=== PATIENT | female | born 1935 | race Caucasian/White ===

== ENCOUNTER 2016-06-03 04:56 | Inpatient (IN) | payer MEDICARE, OTHER ==
[~2016-06-03] VITALS: Ht 149.9 cm; Wt 75.6 kg
--- NOTE | ~2016-06-03 | ER ---
PATIENT'S NAME: WOJCIECH RAGLAND [facility] AGE: 81 Y [address] ROOM: [address] [place], [place] [address] LOCATION: GPCU ADMIT DATE: 06/03/2016 ER/Outpatient Report DISCHARGE DATE: FAMILY PHYSICIAN: Kath Dalton MD ATTENDING PHYSICIAN: Kath Dalton This is addendum to note by Dr. Parsons. I received handout from Dr. Parsons at 0600 hours. The patient had some unusual findings on her EKG including flipping her T-waves in lead III as well as some slight ST-segment elevation, not meeting criteria in V2, which is different from prior EKGs as reviewed by me. Her chest x-ray, pulmonary exam, and the fact that she is requiring slight oxygen and this has been persistent are concerning for heart failure. She does have some trace edema of the lower extremities, but has been dealing with some lower extremity wounds. Her D- dimer came back elevated at 0.82. Her proBNP is also elevated today at 1499. Magnesium 2.3. CPK is 37, CK-MB 0.9, troponin I is undetectable with repeat labs notable for a CPK of 36, CK-MB of 0.8, troponin I is undetectable. Repeat EKG is grossly stable with no significant changes. Procalcitonin is undetectable. Sodium 135, potassium 4.6, chloride 100, CO2 is 27, BUN is 15, creatinine 0.9, GFR is 60. LFTs grossly unremarkable. WBC is 8.3, hemoglobin is 8.5, and platelets of 308. INR of 1.0. Lactate 0.8. CT PE protocol with moderate pulmonary edema, but no PE per Radiology read, I did not visualize any PE on the scan. When the patient was on room air after a CT, she was saturating 86-87%. For those reasons, in the setting of probable mild heart failure exacerbation and persistent dysuria, we will admit the patient to the hospital. Her primary care is Dr. Dalton, and thus we will admit to Dr. Yousif for further evaluation and treatment. The patient remained hemodynamically stable, requiring 1-2 L of oxygen in the emergency department. All questions were answered to the best of my ability, and the patient was admitted without further issue. MD YANELIS CASANOVA/andrea /[id number] d: 06/03/16 1643 t: 06/10/16 2352, OUTPATIENT REPORT
--- NOTE | ~2016-06-03 | CATH ---
Cardiac Diagnostic Report Demographics Patient Name OBIE Beckham Gender Female Date of 1935 Age 81 year(s) Patient Number [id number] Date of Study 06/06/2016 Visit Number [id number] Room Number G6217 [place] [id number] Ht 149.86 cm Wt 76.66 kg Referring Krystle Kath Treviño MD Primary Physician Physician Performing Meliza Secondary Physician Physician Tamie CRAVEN Diagnostic Meliza Assisting Physician Physician Tamie CRAVEN Interventional Physician Rpg Programmer Physician Findings and Conclusions Diagnostic Findings and Conclusion 1. RA: 2. RV: 68// 3. PA / 4. PCWP 5. LV Peak to peak gradient 65mm Hg. CO Thermo 3.18. Lauro 2.44. 1. Moderate PHTN. 2. Elevated LV EDP and PCWP (). 3. Critical . 4. Normal EF without WMA. 5. Patent LAD and LCFX stent. 6. ISR of the small OM1 stent 80%. 7. Moderate CAD involving distal LAD and OM2. Procedure Description The patient was brought to the diagnostic cardiac catheterization-EP laboratory in the fasting, non-sedated state. Informed consent was obtained in the written and verbal form after the risks and benefits were explained. The patient had no further questions and agreed to proceed. The planned puncture-incision site(s) were shaved and prepped with ChloraPrep and draped in the usual sterile manner. Conscious sedation, supplemental oxygen, and pain control medications were delivered by a registered nurse under physician guidance. Surface ECG rhythm, blood pressure measurement, and pulse oximetry were monitored throughout the procedure. Arterial access. The access site was infiltrated with lidocaine. The vessel was entered with the Seldinger technique. A sheath was advanced into the vessel and used for catheter placement. Venous access. The access site was infiltrated with 2% lidocaine. The vessel was entered with the Seldinger technique. A sheath was advanced into the vessel and used for catheter placement. Selective left coronary angiography. A catheter was advanced into the left coronary vessel ostium under Fluoroscopic guidance. Contrast was injected by hand. Images were obtained in multiple projections. Selective right coronary angiography. A catheter was advanced into the right coronary vessel ostium under fluoroscopic guidance. Contrast was injected by hand. Images were obtained in multiple projections. Left heart catheterization with ventriculography. A catheter was advanced across the aortic valve to the left ventricle under fluoroscopic guidance. Resting hemodynamics were obtained. With the catheter at the left ventricular apex, contrast was injected. Images were obtained in FLORES projection. Post-ventriculography LV pressure was obtained. The catheter was gradually withdrawn into the aorta with continuous pressure recording. Right heart catheterization. A Edison Nicole catheter was successfully advanced to the right atrium, right ventricle, pulmonary artery, and pulmonary artery wedge position under fluoroscopic guidance. Resting hemodynamics were obtained. Measurements included pressures, arterial and venous oxygen saturation samples, and cardiac output. The Edison was removed without difficulty. Arterial and Venous hemostasis was achieved. The patient was transferred to a regular nursing floor via cart accompanied by a nurse. The patient left the laboratory in stable condition. Diagnostic Cath Status: Urgent Procedure Procedure Type Diagnostic procedure:Ventriculogram:, Left, Angiography:, Right and Left Heart Cath, Coronary Angios Indications: Dyspnea. The procedure was explained in detail to the patient. Risks, complications and alternative treatments were reviewed. Written consent was obtained. Medications Reviewed with Patient prior to Procedure. Angiographic Findings Dominance: Right Cardiac Arteries and Lesion Findings LMCA: Abnormal and Minor Luminal Irregularities.Luminal Irregularities. Calcium and stents seen. LAD: Abnormal.Moderate diffuse disease. Type III. D1 large. D2 small. Stent in midlle LAD patent. Distal to stent is 60% stenosed. There is a previous stent on Mid LAD Mid subsection showing wide patency. Lesion on Dist LAD: Distal subsection.60% stenosis . Pre procedure PANFILO III flow was noted. The lesion was diagnosed as a moderate risk lesion. LCx: Abnormal.Small OM1. In stent restenosis 80%. PANFILO 3 Flow. Stent after OM1 patent. OM2 large. Proximal 50% stenosed. OM3 small. There is a previous stent on 1st Ob Madelaine showing focal ISR. There is a previous stent on Mid CX Mid subsection showing wide patency. Lesion on 1st Ob Madelaine: Proximal subsection.80% stenosis . Pre procedure PANFILO III flow was noted. The lesion was diagnosed as a moderate risk lesion. Lesion on 2nd Ob Madelaine: Proximal subsection.50% stenosis . Pre procedure PANFILO III flow was noted. The lesion was diagnosed as a moderate risk lesion. RCA: Abnormal.Dominant vessel. Moderate diffuse disease. Coronary Tree Procedure Data Procedure Date Date: 06/06/2016Start: 12:54 PMEnd: 03:30 PM Entry Locations - Retrograde Percutaneous access was performed through the Right Femoral artery (Primary location). A 7 Fr sheath was inserted. Hemostasis was successfully obtained using Angio-Seal STS PLUS ([place]). - Antegrade Percutaneous access was performed through the Right Femoral vein. A 7 Fr sheath was inserted. Closure Comments: 5 minutes of manual compression held by Lexy Martinez. Procedure Medications Order and Administration + + +---------+ + !Time !Medication !Dosage !Route ! + + +---------+ 06/06/2016 12:52 PM !Fentanyl !25 mcg !I.V. ! + + +---------+ 06/06/2016 01:29 PM !Fentanyl !25 mcg !I.V. ! + + +---------+ 06/06/2016 01:45 PM !Oxygen !2 l/min !Mask ! + + +---------+ + !06/06/2016 02:11 PM !Atropine !0.5 mg !I.V. ! + + +---------+ + !06/06/2016 02:12 PM !Atropine !0.5 mg !I.V. ! + + +---------+ + !06/06/2016 02:22 PM !Oxygen !4 l/min !Mask ! + + +---------+ + !06/06/2016 02:52 PM !Albumin 25% !100 ml !I.V. bolus ! + + +---------+ + Devices Used - A6 Fr. BS JR 4 Diag. Catheterwas used for:LV Pressures. - A6 Fr. BS Angled Pigtail Diag. Catheterwas used for:Left ventriculography. - A6 Fr. BS JL 4 Diag. Catheterwas used for:Left coronary angiography. - A6 Fr. BS JR 4 Diag. Catheterwas used for:Right coronary angiography. Contrast Material - Isovue 01817 ml Fluoroscopy Time: Diagnostic: 22:42 minutes. Total: 22:42 minutes. Fluoroscopy Dose: Diagnostic: 1283 mGy. Total: 1283 mGy. Estimated Blood Loss: 46 ml. Medical History Allergies - Other:(PCN,, Eryhromycin, floxin, Ceclor, Doxycycline, Narvil, Morphine, Nitro patch, Lanoxin, Levaquin). - Penicillin. - Cephalosporines. - Morphine. - Codiene. - Penicillin. Risk Factors The patient risk factors include:prior PCI;cerebrovascular disease, treated hypercholesterolemia, treated hypertension, family history of premature CAD, dyslipidemia and prior heart failure . Admission Data Admission Date: 06/05/2016 Admission Time: 08:10 AM Insurance Payors: Medicare. Admission Medications + +------+------+ + + + + !Medication !Dosage!Times !Last !Last !Administered !Comments ! ! ! !Per !Delivery !Delivery ! ! ! ! ! !Day !Date !Time ! ! ! + +------+------+ + + + + !Aspirin ! ! ! ! ! ! ! !(any) ! ! ! ! ! ! ! + +------+------+ + + + + !Nitrates (iv! ! ! ! ! ! ! !or buccal) ! ! ! ! ! ! ! + +------+------+ + + + + Clinical Evaluation Leading to Procedure - There were no CAD presentation symptoms. - There were no anginal symptoms. - The patient has been in a state of heart failure within the past two weeks. - The patient's heart failure status was assessed as NYHA Class IV, with CHF symptoms of SAL. VA Ventriculography Findings Normal LV function with WMA. LV function assessed as:Normal. Hemodynamics Condition: Rest O2 Consumption: Estimated: 155.07Heart Rate: 71 bpm Oxygen Saturation +--------+-----+----+ +---+ + !Location!pCO2 !pO2 !% Saturation !Hgb!O2 Content ! +--------+-----+----+ +---+ + !FA ! ! !90.8 ! ! ! +--------+-----+----+ +---+ + !PA ! ! !39.4 ! ! ! +--------+-----+----+ +---+ + Pressures (mmHg) +-----+ + !Site !Pressure ! +-----+ + !RA !01/02 (9) ! +-----+ + !RV !68/ ,13 ! +-----+ + !PCW ! (18) ! +-----+ + !PCW ! (27) ! +-----+ + !PA !66/23 (42) ! +-----+ + !LV !213/6 ,19 ! +-----+ + !LV !221/9 ,23 ! +-----+ + !LV !227/10 ,24 ! +-----+ + !PCW !/39 (33) ! +-----+ + !LV !226/10 ,24 ! +-----+ + !PCW !/38 (32) ! +-----+ + !LV !208/13 ,17 ! +-----+ + !LV !217/0 ,18 ! +-----+ + !AO !151/64 (99) ! +-----+ + !LV !217/1 ,18 ! +-----+ + !AO !162/68 (105) ! +-----+ + Cardiac Output + + +-----+ !Time !Cardiac Output (l/min) !Use ! + + +-----+ !06/06/2016 01:17 PM !3.17 !True ! + + +-----+ !06/06/2016 01:19 PM !3.06 !True ! + + +-----+ !06/06/2016 01:19 PM !3.3 !True ! + + +-----+ Cardiac Output +-------+ + + + !Method !CO (l/min) !CI (l/min/m2) !SV (ml) ! +-------+ + + + !Lauro !2.44 !1.4 !34.24 ! +-------+ + + + !Thermal!3.877194 !1.8 !44.12 ! +-------+ + + + Valve Gradients and Areas + +--------+--------+--------+---------+ + + !Valve !Peak !Mean !Area !Index !Flow !Source ! + +--------+--------+--------+---------+ + + !Aortic !65 !59 !0.3 !0.17 !101.88 !Lauro ! + +--------+--------+--------+---------+ + + !Aortic !65 !59 !0.39 !0.23 !132.64 !Thermal ! + +--------+--------+--------+---------+ + + !Mitral ! !12 !0.66 !0.38 !86.56 !Lauro ! + +--------+--------+--------+---------+ + + !Mitral ! !12 !0.86 !0.5 !112.69 !Thermal ! + +--------+--------+--------+---------+ + + Shunts Oxygen Values O2 Capacity 123.76 O2 Consumption 155.07 Flows (l/min) Qs 2.44 Vascular Resistance (dynes x sec x cm-5) + +-----+-----+-----+----+---------+-------+ !CO method !TSVR !SVR !TPVR !PVR !TPVR/TSVR!PVR/SVR! + +-----+-----+-----+----+---------+-------+ !Lauro !43.11!39.6 !17.26!3.98!0.4 !0.1 ! + +-----+-----+-----+----+---------+-------+ !Thermal !33.11!30.42!13.26!3.06!0.4 !0.1 ! + +-----+-----+-----+----+---------+-------+ !Qp or Qs !43.11!39.6 ! ! ! ! ! + +-----+-----+-----+----+---------+-------+ Discharge Data Discharge Date: 06/10/2016 Hospital Status: Inpatient Signatures dtt: Tamie Haider dtd: 06/06/16 1254 Physician Self Edit
--- NOTE | ~2016-06-03 | ENPV ---
Vascular Lower Extremities DVT Study Procedure Demographics Patient Name WOJCIECH RAGLAND Date of Study 06/05/2016 Patient Number [id number] Gender Female Date of 1935 Age 81 Visit Number [id number] Height 59 Accession Number [id number] Weight 169 Referring ArceCristy Mayers Germania Cardona MD Physician BRIDGE INSPECTOR Physician Physician Ordering Physician Stacker Visual Basic .Net Developer Cele Adams, T Conclusions Summary No evidence of deep vein thrombosis or superficial thrombophlebitis in the left lower extremity . Procedure Type of Study: Veins:Lower Extremities DVT Study, Lower Extremity Left. Indications for Study:Pain in Limb. Appropriate Use Criteria:9 Allergies - Other:(PCN,, Eryhromycin, floxin, Ceclor, Doxycycline, Narvil, Morphine, Nitro patch, Lanoxin, Levaquin). Patient Status:Routine. Study Location:Inpatient Portable. Technical Quality:Adequate visualization. Velocities are measured in cm/s ; Diameters are measured in cm Right Lower Extremities DVT Study Measurements Right 2D and Doppler Measurements + + + + +------+------+ + !Location !Visualized!Compressibility!Thrombosis!Signal!Reflux!Reflux ! ! ! ! ! ! ! !(sec) ! + + + + +------+------+ + !GSV Thigh !Yes !Yes !None !Phasic! ! ! + + + + +------+------+ + !Common !Yes !Yes !None !Phasic! ! ! !Femoral ! ! ! ! ! ! ! + + + + +------+------+ + Left Lower Extremities DVT Study Measurements Left 2D and Doppler Measurements + + + + +------+------+ + !Location !Visualized!Compressibility!Thrombosis!Signal!Reflux!Reflux ! ! ! ! ! ! ! !(sec) ! + + + + +------+------+ + !Common !Yes !Yes !None !Phasic!No ! ! !Femoral ! ! ! ! ! ! ! + + + + +------+------+ + !Prox !Yes !Yes !None !Phasic!No ! ! !Femoral ! ! ! ! ! ! ! + + + + +------+------+ + !Mid Femoral!Yes !Yes !None !Phasic!No ! ! + + + + +------+------+ + !Dist !Yes !Yes !None !Phasic!No ! ! !Femoral ! ! ! ! ! ! ! + + + + +------+------+ + !Popliteal !Yes !Yes !None !Phasic!No ! ! + + + + +------+------+ + !Gastroc !Yes !Yes !None !Phasic!No ! ! + + + + +------+------+ + !PTV !Yes !Yes !None !Phasic!No ! ! + + + + +------+------+ + !Peroneal !Yes !Yes !None !Phasic!No ! ! + + + + +------+------+ + Signature dtt: MIA BATISTA dtlulu: 06/05/16 0830 Physician Self Edit
--- NOTE | ~2016-06-03 | DS ---
PATIENT'S NAME: WOJCIECH RAGLAND [facility] AGE: 81 Y [address] ROOM: G6217 [place], [place] [address] LOCATION: [facility] ADMIT DATE: 06/05/2016 Discharge Summary DISCHARGE DATE: 06/10/2016 FAMILY PHYSICIAN: Kath Dalton MD ATTENDING PHYSICIAN: Kath Dalton ADMISSION DIAGNOSES: Shortness of breath, congestive heart failure exacerbation, dyspnea, and hypoxia. HOSPITAL COURSE: The patient is an 81-year-old female who was admitted to the hospital on June 03, 2016 with a CHF exacerbation. She follows with Dr. Bam Chua for Cardiology. She has a diagnosis of CAD, PAF, CVA, CKD, hypertension, history of subdural bleed, history of PE, severe aortic stenosis and mitral regurgitation. CT of the chest was done and negative for PE. She required oxygen to keep her O2 saturation above 90%. Lasix IV was given for diuresis. Echocardiogram was ordered, it showed ejection fraction 50%, grade 3 diastolic dysfunction with gogijgcg-so-mbuwzz mitral regurgitation and lnwsduck-gy-zxfsnl tricuspid regurgitation with severe pulmonary hypertension with RSVP 95 as well as wiss-il-mhmnbohc RV dilation and severe aortic stenosis. She was also found to be anemic. When she was in clinic October 2015, her hemoglobin 10.7 and it was found to be 8.7 on June 04. Hemoccult stools were ordered, but she did not have a bowel movement until June 08. Dulcolax suppositories have been ordered as needed but they were not given until ordered as scheduled on June 08. She had a Hemoccult done for stool and that was negative for blood. It was also noted that her TSH was a little bit high when she was first admitted. She has hypothyroidism. TSH and T4 both normal in January 2016 in the clinic. I decided to wait to recheck those as an outpatient. She had some calf tenderness on the left leg, so this is Doppler to rule out DVT which was negative. I did consult Hematology for her anemia. She has had very chronic complaint for constipation, abdominal pain, GI upset, and bloating, now is concerned about the possibility of p.o. iron upsetting that. However, the patient did relate to Hematology, she had a very vivid and unpleasant memory of intravenous iron in the past, so she thought she would never repeat again. Therefore, we did elect to try a trial of p.o. iron. She has been tolerating it so far. She did have LDH done which was normal. Dr. Rojo has ordered additional studies which she will follow up with the patient as an outpatient to determine the exact etiology of her anemia. She had a heart catheterization June 06, 2016. She had what sounds like a vasovagal event (bradycardic and hypotensive, given nitroglycerin and albumin) PATIENT'S NAME: WOJCIECH RAGLAND [facility] AGE: 81 Y [address] ROOM: [place] [address] LOCATION: TU ADMIT DATE: 06/05/2016 Discharge Summary DISCHARGE DATE: 06/10/2016 FAMILY PHYSICIAN: Kath Dalton MD ATTENDING PHYSICIAN: Kath Dalton afterwards. She was transferred to the ICU. She did well there and ended up being transferred out to the neurotrauma floor. Since she has been transferred to neurotrauma on June 08, she has been doing well. She was transfused 1 unit of PRBC on June 08 and the hemoglobin got down to 7.9. It did come up to 8.6 and she felt better after that. DISPOSITION: Discharged back to [facility]. DISCHARGE MEDICATIONS: 1. Nitroglycerin 0.3 mg sublingual q.5 minutes p.r.n. chest pain. 2. Tylenol 500 mg p.o. q.h.s. and 500 mg p.o. q.4 hours p.r.n. pain. 3. Abilify 2 mg p.o. daily. 4. Aspirin 81 mg p.o. daily. 5. Atorvastatin 40 mg p.o. q.h.s. (new med). 6. Baclofen 10 mg p.o. t.i.d. 7. Calcium/vitamin-D 2.5 tablets p.o. daily. 8. Linzess 145 mcg p.o. daily. 9. Antacid 30 mL p.o. q.4 hours p.r.n. reflux. 10. Clobetasol 0.05% cream twice weekly to the affected area. 11. DermOtic two drops otic as needed p.r.n. ear dryness. 12. Zyrtec 10 mg p.o. daily. 13. Vitamin D3 5000 International Units daily. 14. Vitamin B12 1000 mcg p.o. daily. 15. Multaq 400 mg p.o. b.i.d. 16. Isordil 20 mg p.o. b.i.d. (new dose). 17. Lamictal 200 mg p.o. daily. 18. Levothyroxine 100 mcg p.o. daily. 19. Ativan 0.5 mg p.o. b.i.d. 20. Iron 325 mg p.o. b.i.d. (new prescription). 21. Mag oxide 400 mg p.o. daily. 22. Omeprazole 40 mg p.o. daily. 23. Ranexa 1000 mg p.o. b.i.d. 24. Zoloft 150 mg p.o. daily. 25. Nasal saline to nostrils b.i.d. p.r.n. 26. Bactrim-DS 0.5 tablets p.o. q.h.s. 27. Trazodone 100 mg p.o. q.h.s. 28. Albuterol sulfate nebulizer treatments q.h.s. 29. Magnesium citrate 296 mL p.o. q.48 hours p.r.n. constipation. 30. Zofran 4 mg p.o. q.8 hours p.r.n. nausea. 31. Ultram 50 mg p.o. t.i.d. p.r.n. pain. 32. Lasix 20 mg p.o. q.48 hours. 33. PreserVision one cap p.o. b.i.d. 34. Symbicort 160/4.5, two puffs inhaled b.i.d. PATIENT'S NAME: WOJCIECH RAGLAND [facility] AGE: 81 Y [address] ROOM: [id number] [place] [id number] LOCATION: [facility] ADMIT DATE: 06/05/2016 Discharge Summary DISCHARGE DATE: 06/10/2016 FAMILY PHYSICIAN: Kath Dalton MD ATTENDING PHYSICIAN: Kath Dalton 35. Amoxicillin 2000 mg one time p.r.n., 1 hour prior to dental appointment. 36. Artificial Tears ophthalmic as needed p.r.n. irritation in both eyes. 37. MiraLAX 17 g p.o. daily p.r.n. constipation. 38. Voltaren 1% gel applied twice daily p.r.n. pain. 39. Thera-Gesic cream daily p.r.n. pain. 40. Refresh ointment to eyes q.2 hours p.r.n. dry eyes, both eyes. 41. Phenergan with Codeine 5 mL p.o. q.4 hours p.r.n. cough. 42. Dulcolax 10 mg ME daily p.r.n. constipation (new prescription). FOLLOWUP: She is to follow up with me in clinic in two weeks. She is to call Dr. Chua on June 28. Dr. Rojo's office will be contacting her to schedule followup. MD LYNNE VAZQUEZ/andrea /[id number] d: 06/10/16 1508 t: 06/25/16 0024, DISCHARGE SUMMARY
--- NOTE | ~2016-06-03 | ECHO ---
Transthoracic Echocardiography Report (TTE) Demographics Patient Name WOJCIECH RAGLAND Date of Study 06/03/2016 L Patient Number [id number] Visit Number [id number] Date of 1935 Room Number G6322 Gender Female Number Age 81 year(s) Referring Krystle Kath Treviño MD Plastic Parts Fabricator Beau Vega [facility], Physician RVT Physician Interpreting Toma Kuhn MD Revenue Tax Specialist Physician Supervising Ordering Toma Kuhn MD, MD/MLP Physician Nurse Stress Blower Insulator Conclusions Contractility Score Summary Normal Left Ventricular contractility was noted. Summary Technically difficult exam. The estimated left ventricular ejection fraction is 50%. Mild concentric left ventricular hypertrophy. Diastolic assessment reveals Grade III restrictive diastolic dysfunction. The right atrium is severely dilated. Moderate-severe mitral regurgitation by color Doppler. Mild mitral annular calcification. Continuity Equation. The peak velocity is 4.74 m/s, the mean gradient is 47 mmHg, and the valve area based on the continuity equation is 0.73 cm2. Moderate-severe tricuspid regurgitation by color Doppler. There is severe pulmonary hypertension. The pulmonary pressure (RVSP) is 95.28 mmHg. Procedure Type of Study TTE procedure:2D Echocardiogram. Procedure Date Date: 06/03/2016 Start: 11:27 AM Study Location: Inpatient Portable Technical Quality: Adequate visualization Indications:Shortness of breath and Aortic stenosis. Appropriate Use Criteria: 9 Patient Status: Routine BP: 173/88 mmHg Allergies - Other:(PCN,, Eryhromycin, floxin, Ceclor, Doxycycline, Narvil, Morphine, Nitro patch, Lanoxin, Levaquin). M-Mode/2D Measurements LV Diastolic Dimension: 4.97 cm LV Systolic Dimension: 3.59 cm LV Septum Diastolic: 0.94 cm LV PW Diastolic: 1.03 cm LA Dimension: 3.9 cm RV Diastolic Dimension: 3.58 cm LA volume: 48 ml LVOT: 1.9 cm RV Base: 3.39 cm LVOT VTI: 28.4 cm RV Mid: 3.25 cm LV Stroke volume: 80.48 ml TAPSE: 2.08 cm TDI-S': 8.77 cm/s Doppler Measurements AV Peak Velocity: 4.74 m/s MV Peak E-Wave: 1.35 m/s AV Peak Gradient: 89.87 mmHg MV Peak A-Wave: 0.73 m/s AV Mean Gradient: 47 mmHg MV E/A Ratio: 1.84 LVOT Peak Velocity: 1.52 m/s MV P1/2t: 43 msec AV P1/2t: 281 msec TR Gradient:80.28 mmHg PV Peak Velocity: 1.29 m/s Estimated RAP:15 mmHg PV Peak Gradient: 6.66 mmHg Estimated RVSP: 95 mmHg Estimated PASP: 95.28 mmHg E' Septal Velocity: 0.05 m/s A' Septal Velocity: 0.05 m/s E' Lateral Velocity: 0 m/s A' Lateral Velocity: 0.05 m/s Findings Left Ventricle Mild concentric left ventricular hypertrophy. Diastolic assessment reveals Grade III restrictive diastolic dysfunction. Right Ventricle Mildly reduced right ventricular function. Mild to moderately dilated right ventricle. Left Atrium Normal left atrial size. Right Atrium The right atrium is severely dilated. Dilated IVC with poor inspiratory collapse consistent with elevated RA pressure. Mitral Valve Moderate-severe mitral regurgitation by color Doppler. Mild mitral annular calcification. Aortic Valve There is moderate aortic regurgitation by color Doppler. There is severe aortic stenosis by the Continuity Equation. The peak velocity is 4.74 m/s, the mean gradient is 47 mmHg, and the valve area based on the continuity equation is 0.73 cm2. Tricuspid Valve Moderate-severe tricuspid regurgitation by color Doppler. There is severe pulmonary hypertension. The pulmonary pressure (RVSP) is 95.28 mmHg. Pulmonic Valve Normal pulmonic valve structure and function. Pericardial Effusion No evidence of pericardial effusion. Miscellaneous Visualized portions of the aortic root and ascending aorta appear normal in size. Pleural Effusion Possible pleural effusion. Contractility Score LV regional wall motion:(0-Non visualized 1-Normal 2-Hypokinesis 3-Akinesis 4-Dyskinesis 5-Aneurysm) Signature dtt: Bam Chua (cardio) dtd: 06/03/16 1127 Physician Self Edit
--- NOTE | ~2016-06-03 | CON ---
PATIENT'S NAME: ALMA RAGLAND [place] AGE: 81 Y [address] ROOM: [id number] [place], [place] [address] LOCATION: GICU ADMIT DATE: 06/05/2016 Consultation DISCHARGE DATE: FAMILY PHYSICIAN: Kath Dalton MD ATTENDING PHYSICIAN: Kath Dalton REFERRING PHYSICIAN: Bam Chua MD This is a consult to Dr. Kath Dalton. HISTORY OF PRESENT ILLNESS: Alma Ragland is an 81-year-old woman with presumed iron deficiency. We are consulted regarding the proper route of iron replacement. Mrs. Ragland was in her normal state of health until 05/31/2016. She lived at the [facility] with Mr. Ragland. She has been bound to her electric wheelchair. She can transfer when she needs to toilet. She participates in physical therapy and rehabilitation. She is unable to read and certainly cannot drive because she has severe bilateral wet macular degeneration. She is wheelchair-bound due to disability from presumed multiple sclerosis. The patient developed progressive dyspnea on or around 01/28/2017 and this progressed to the point she needed emergent evaluation in the [facility] Emergency Room on 06/03/2016. The patient's EKG revealed inverted T- waves in lead III and slight ST-T elevation. She required new oxygen supplementation. Her pro-BNP was 1499 pg/mL. The CK and troponins were unremarkable. The hemoglobin was 8.5 g/dL and the platelets were 308,000. A CAT scan with PE protocol revealed moderate pulmonary edema, but no pulmonary thromboembolism. Her SpO2 was 86/87%. The patient was admitted to Dr. Dalton and Dr. Bam Chua was consulted regarding her cardiac situation. The patient had a known history of coronary artery disease and aortic stenosis. Plans to reevaluate the aortic stenosis and coronary artery disease were made and the patient was hospitalized. Parenteral furosemide and sublingual nitroglycerin were administered. Upon admission, the white count was 8300 with 67% neutrophils and 19% lymphocytes. The hemoglobin was 8.5, the MCV was 83, and the platelets were 308,000. The INR was 1 and the PTT was 24. Over the last three days, the hemoglobin has basically been stable at 8.5. It should be noted on 08/12/2013, it was 12, but on 03/05/2015, it was 10.1. The CMS upon admission was unremarkable. The eGFR was greater than 60. The iron was 24, the TIBC was 410, and the percentage saturation 6%. The ferritin was 27.2 ng/mL. The TSH was slightly elevated at 4.82 uIU/mL. No stools have been collected for Hemoccult testing as the patient has been constipated. Dr. Dalton recommended parenteral iron replacement to the patient because the patient has PATIENT'S NAME: ALMA RAGLAND [place] AGE: 81 Y [address] ROOM: [address] [address] LOCATION: GICU ADMIT DATE: 06/05/2016 Consultation DISCHARGE DATE: FAMILY PHYSICIAN: Kath Dalton MD ATTENDING PHYSICIAN: Kath Dalton longstanding multifactorial abdominal complaints and the prospect of administering oral iron is forbidding. The patient has taken oral iron in the past, although her memory of just why, when, and even where is shaky. Her recollection is that she has been able to take oral iron over extended periods of time without unacceptable toxicity. She recalls on one occasion receiving parenteral iron replacement by vein which "made me very sick." The infusion was complicated with a very painful arm. She vowed she would never take any iron replacement in the future by vein. The patient has no family history of iron or B12 deficiency. She recalls being low on iron for many years but does not know why she has been low on iron. The patient does not have an idiosyncratic diet and generally eats a balanced diet. Her stools have not been tested for Hemoccult for 5 years. She makes the point she has been anorexic and has lost 5 pounds and she has developed some pedal edema. She has had dysphagia for solids and liquids for quite a while. She believes she may have been anemic for almost 10 years. She also reports she has had some nausea and intermittent vomiting, on rare occasions, off and on for several months. ACTIVE MEDICAL PROBLEMS CHRONIC AND DIAGNOSED: 1. Severe aortic stenosis noted on echocardiogram. 2. Grade 3 restrictive diastolic dysfunction. 3. Huahcepn-zd-dmyudk mitral regurgitation with mild mitral annular calcification per echo. 4. Dcaivdkc-ku-ijtsgw tricuspid regurgitation. 5. Severe pulmonary hypertension with the pulmonary pressure being 95 mmHg. 6. Moderate aortic regurgitation. 7. Perennial rhinitis treated with parenteral shots. 8. Paroxysmal atrial fibrillation. 9. Seizure disorder. This is listed as a diagnosis, she denies it. 10. Multiple sclerosis, first symptomatic apparently with optic neuritis in 1964. The patient does not know how much of her current disability is due to her multiple sclerosis. She does not appear to be on any medication for multiple sclerosis. 11. Atherosclerotic vascular disease with thoracic aortic calcifications on plain film. 12. Bilateral wet macular degeneration, treated with intravitreous bevacizumab. 13. Diaphragmatic hernia noted on chest x-ray. 14. Atherosclerotic heart disease, treated with PTCA and stenting of the left anterior descending artery in 2004. 15. Predisposition to urinary tract infections noted since 2012. 16. Hypercholesterolemia. 17. Essential arterial hypertension noted in 1976, which has not been labile. PATIENT'S NAME: ALMA RAGLAND [place] AGE: 81 Y [address] ROOM: [place] [address] LOCATION: GICU ADMIT DATE: 06/05/2016 Consultation DISCHARGE DATE: FAMILY PHYSICIAN: Kath Dalton MD ATTENDING PHYSICIAN: Kath Dalton 18. Osteoarthritis of the neck, shoulders, elbows, wrists, hands, back, hips, knees. 19. Scoliosis. 20. Diverticulosis noted in 2014. 21. Cirrhosis. 22. Psoriasis on the extensor surface of her knees and in her scalp in the past. 23. Lactase deficiency manifested with gas and diarrhea if she tries to ingest milk products. 24. Bipolar disorder - type 1. The patient has been hospitalized in [facility]. She has never had electroconvulsive therapy. 25. Hypothyroidism, iatrogenic, since a thyroid resection in 1964 for benign disease. 26. Gastroesophageal reflux disease with diaphragmatic hernia. 27. Osteoporosis. 28. ? B12 deficiency. 29. Constipation predominant irritable bowel syndrome treated with linaclotide. ACUTE MEDICAL ILLNESSES (RESOLVED, PAST SURGERIES, INJURIES): 1. 1950, tonsillectomy. 2. 8510-4044: G6, P5, AB1. 3. 1956, exploratory surgery and appendectomy. 4. 1964, excision of a thyroid growth leading to iatric hypothyroidism. 5. 1969, left lower leg vein stripping. 6. 1979, vaginal hysterectomy for menometrorrhagia. 7. 1994, right total knee arthroplasty with jemal placement. 8. 1994, right ankle reconstruction. 9. 1994, right modified radical mastectomy for right breast cancer. The grade, stage, and indeed histology are unknown. The patient received no adjuvant chemotherapy or radiation therapy but took oral tamoxifen for 5 years. She was tested for hereditary mutation at [facility] and did not have a hereditary mutation. 10. 2001 - varicella zoster virus in the right T4 distribution. 11. 2004, left heart catheterization with a PTCA and stent in the LAD due to cardiac episode. The patient had two-vessel disease. 12. 2005, bilateral hemilaminectomy and lateral recess decompression at L2- L3, L3-L4, L4-L5, and L5-S1. 13. 2006, right and left cataract extraction. 14. 2006, two admissions for exacerbation of chest pain. 15. 2007, four admissions for exacerbation of chest pain. 16. 2007, acute pulmonary embolism. 17. 2008, left heart catheterizations, the vessels were patent. 18. 2010, subdural hematoma sustained in a fall. No operation was necessary. PATIENT'S NAME: ALMA RAGLAND [place] AGE: 81 Y [address] ROOM: [place] [address] LOCATION: [facility] ADMIT DATE: 06/05/2016 Consultation DISCHARGE DATE: FAMILY PHYSICIAN: Kath Dalton MD ATTENDING PHYSICIAN: Kath Dalton 19. 2011, laparoscopic cholecystectomy. 20. 2011, community-acquired pneumonia. . 2013, viral gastroenteritis. 22. 2016, ? 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 The patient is seeing the ear, nose, and throat physicians for this. MEDICATIONS: Medications upon admission. 1. Acetaminophen. 2. Albuterol. 3. Aripiprazole. 4. Artificial Tears. 5. Aspirin. 6. Baclofen. 7. Budesonide/formoterol. 8. Calcium carbonate with vitamin D. 9. Cetirizine. 10. Cholecalciferol. 11. Clobetasol propionate. 12. Cyanocobalamin 1000 mcg p.o. daily. 13. Diclofenac. 14. Dronedarone. 15. Furosemide. 16. Isosorbide dinitrate. 17. Lamotrigine. 18. Levothyroxine sodium. 19. Linaclotide. 20. Lorazepam. 21. Magnesium citrate. 22. Magnesium oxide. 23. Methyl salicylate/menthol analgesic balm. 24. Nitroglycerin p.r.n. 25. Omeprazole 40 mg daily. 26. Ondansetron 4 mg every 8 hours. 27. Polyethylene glycol p.r.n. constipation. 28. Ranolazine 1000 mg p.o. b.i.d. 29. Sertraline 150 mg p.o. daily. 30. Bactrim DS one-half tablet at bedtime. 31. Tramadol 50 mg p.r.n. 32. Trazodone 100 mg tablets q.h.s. 33. Multivitamins as needed. ADVERSE REACTIONS TO MEDICATIONS: Penicillins, cephalosporins, tetracyclines, macrolide antibiotics, quinolones, digoxin, morphine, hydrocodone, doxycycline, erythromycin base, ofloxacin, PATIENT'S NAME: ALMA RAGLAND [place] AGE: 81 Y [address] ROOM: [place] [address] LOCATION: [facility] ADMIT DATE: 06/05/2016 Consultation DISCHARGE DATE: FAMILY PHYSICIAN: Kath Dalton MD ATTENDING PHYSICIAN: Kath Dalton N[place]. TRANSFUSION HISTORY: The patient did have transfusions with knee surgery. SOCIAL HISTORY: Tobacco, none. Alcohol, since 1999 the patient has had Lea cream every night. Caffeine, 2 to 3 cups of coffee and sodas a day. IMMUNIZATIONS: Positive flu. Positive Pneumovax. Negative tetanus. Negative varicella zoster virus. FAMILY HISTORY: Maternal aunt, breast cancer, greater than 50. Maternal aunt, breast cancer, less than 50. Daughter, breast cancer, 34. Daughter, breast cancer, 40, BRCA testing was negative. Her father had pancreatic cancer. SOCIAL HISTORY: The patient was [place] in [place] [facility] and graduated at [employer]. She attended [employer] but had to leave when her left to go farm. She finally completed her degree at the [employer] when she was 53 years old. 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 The patient has a daughter in [place], [place], two daughters in [place] and a daughter and son in the [place] area. The patient is a Buddhism and as noted lives in [place] with her . REVIEW OF SYSTEMS: Other than those noted in the history of the present illness is negative. PHYSICAL EXAMINATION: VITAL SIGNS: Pulse 72 and regular, blood pressure 120/60, respiratory rate 18, temperature 98.1, height 71 inches, weight 76.9 kg (170 pounds), BMI 34.2 kg/m2. GENERAL: Well-developed, obese, 81-year-old female in no acute distress. HEENT: Scar on the right forehead, otherwise, unremarkable. LYMPH NODES: None palpable. NECK: Without JVD, but there is transmitted bruit in both carotids. SKIN: Ecchymoses on the ventral aspect of the forearms. CHEST: Crackles throughout both lung aquino. CARDIOVASCULAR: Regular rhythm with a grade 3/6 systolic ejection murmur in the right upper sternal border radiating to the carotids and across the precordium. BREASTS: Status post right modified radical mastectomy. Left breast PATIENT'S NAME: ALMA RAGLAND [place] AGE: 81 Y [address] ROOM: [address] [address] LOCATION: [facility] ADMIT DATE: 06/05/2016 Consultation DISCHARGE DATE: FAMILY PHYSICIAN: Kath Dalton MD ATTENDING PHYSICIAN: Kath Dalton unremarkable. ABDOMEN: Well-healed midline scar from the umbilicus to symphysis pubis. No masses, tenderness, or megaly. GENITALIA AND RECTAL: Cuevas catheter in place. Not examined. EXTREMITIES: Right TKA scar. Pitting edema to the ankles. The patient does have compression devices in place. NEURO: The patient is alert and responsive and moves all four extremities without difficulty. IMPRESSION: An 81-year-old woman with, 1. Anemia and iron deficiency. There may be other factors contributing and this may be a multifactorial anemia. 2. The cause of the iron deficiency is uncharacterized. 3. The prospect of administering oral iron to a patient with constipation predominant irritable bowel syndrome should elicit feelings of dread and foreboding as many patients who take iron supplementation can develop constipation (or nausea, vomiting, or diarrhea). On the other hand, 80% of patients can usually take iron replacement, and the patient stoutly maintains she has tolerated oral iron replacement in the past. 4. The patient's history of intense arm pain following parenteral iron by vein is idiosyncratic. Presumably when iron is administered properly, this should not occur. However, the patient is phobic about taking parenteral iron by vein and would not be persuaded to do so. If parenteral iron replacement is necessary, consideration should be given to placement of an implanted vascular access catheter. RECOMMENDATIONS: DIAGNOSTIC: 1. Hemosure x 1 to see if the patient is iron deficient because of blood loss. If her stools are Hemosure negative, would test for... 2. IgA level, IgA endomysial antibody level, IgA tissue transglutaminase and anti-parietal antibodies to rule out pernicious anemia and/or celiac disease. 3. If the patient has occult blood in her stool the pros and cons of endoscopy studies in this elderly woman with multiple comorbidities would have to be considered. We would have to keep in mind angiodysplasia is a very common cause of chronic slow blood loss in elderly patients, particularly with severe aortic stenosis. TREATMENT: 1. Ferrous sulfate, 325 mg po ac tid. PATIENT EDUCATION: 1. Discussed these considerations. Recommended she start oral iron replacement at this point. RACHELLE TREVINO MD PATIENT'S NAME: ALMA RAGLAND [place] AGE: 81 Y [address] ROOM: [place] [address] LOCATION: [facility] ADMIT DATE: 06/05/2016 Consultation DISCHARGE DATE: FAMILY PHYSICIAN: Kath Dalton MD ATTENDING PHYSICIAN: Kath DaltonB/laurenl /[id number] CC: MD Kath Lindo MD d: 06/08/16 0240 t: 06/09/16 1733, CONSULTATION REPORT
--- NOTE | ~2016-06-03 | CON ---
[facility] AGE: 81 Y [address] [id number] [address] LOCATION: [facility] ADMIT DATE: 06/05/2016 Consultation DISCHARGE DATE: FAMILY PHYSICIAN: Kath Dalton MD ATTENDING PHYSICIAN: Kath Dalton DATE OF CONSULTATION: 06/03/2016 REFERRING PHYSICIAN: Bam Chua MD REASON FOR CONSULTATION: Shortness of breath and heart failure. HISTORY OF PRESENT ILLNESS: This is an 81-year-old female, well known to Dr. Chua with history of coronary artery disease, paroxysmal atrial fibrillation, aortic stenosis, and history of subdural bleed in 2010. She was admitted on 06/03, on the day of consult, with complaints of increased shortness of breath over the last couple 3 days. She denies any new orthopnea, although she is found a little bit more difficult to lie down and breath. There has been no report of new increased peripheral edema. She denies feeling any palpitations or lightheadedness. She has not had any problems with exertional chest heaviness. She does report that once in a great while, she will awaken at nighttime with some chest pain that is relieved with tramadol. She did have an EKG done when she was transferred to the emergency room and she had a flipped T-wave noted in lead [address] elevation in V2. Her chest x-ray showed probable interstitial edema. Her proBNP was 1499. Magnesium was 2.3. Her troponin I was undetectable. CT scan per PE protocol showed moderate pulmonary edema, but no pulmonary embolus. She became hypoxic after returning from her CT and was placed on oxygen. Her O2 saturations were in the 86. PAST MEDICAL HISTORY: 1. Coronary artery disease. 2. Paroxysmal atrial fibrillation. 3. History of CVA with a subdural bleed in 2010. 4. Chronic kidney disease. 5. Essential hypertension. 6. Pulmonary embolus in 2009. 7. History of pneumonia. 8. History of urinary tract infections. 9. Diastolic dysfunction. 10. Multiple sclerosis. 11. Gastroesophageal reflux. 12. Aortic stenosis. 13. Mitral valve prolapse with mitral valve regurgitation. 14. Dyslipidemia. 15. Seizure disorder. 16. Hypertriglyceridemia. PATIENT'S NAME: [facility] AGE: 81 Y [address] [id number] [address] LOCATION: [facility] ADMIT DATE: 06/05/2016 Consultation DISCHARGE DATE: FAMILY PHYSICIAN: Kath Dalton MD ATTENDING PHYSICIAN: Kath Dalton PAST SURGICAL HISTORY: 1. Exploratory abdominal surgery with appendectomy. 2. Right total knee surgery with jemal placement in femur. 3. Left heart catheterization in July 2004, showing 2-vessel coronary artery disease with percutaneous transluminal coronary angioplasty and stenting of the left anterior descending artery. 4. Left heart catheterization in 2009, showing a patent stent with 2+ mitral regurgitation. 5. Left heart catheterization on 08/16/2013, EF 55%, there was a stent mismatch, 60% distal LAD, LCX, OM 20% to 30%. ALLERGIES: PENICILLIN, ERYTHROMYCIN, FLOXIN, CECLOR, DOXYCYCLINE, MORPHINE, AND NORDRYL. CURRENT MEDICATIONS: 1. Acetaminophen 500 mg 1 tablet at bedtime. 2. Albuterol sulfate 2.5 mg, give 3 mL inhalation at bedtime. 3. Aspirin 81 mg daily. 4. Cetirizine 10 mg p.o. in the morning. 5. Furosemide 20 mg every other day. 6. Lamotrigine 200 mg in the morning. 7. Levothyroxine 100 mcg daily. 8. Linzess 145 mcg daily. 9. Magnesium oxide 400 mg daily. 10. Oyst-Joshua with vitamin D 500 mg, give 2.5 tablets every a.m. 11. Sertraline 100 mg, 1.5 tablets every morning. 12. Bactrim 800/160, 1/2 tablet at bedtime. 13. Trazodone 100 mg 1 tablet at bedtime. 14. Vitamin B12, 1000 mcg 1 tablet p.o. in the morning. 15. Vitamin D3, 5000 units p.o. in the morning. 16. Clobetasol 0.05% cream, apply to affected area topically 2 times a day, every Friday and Friday. 17. Isosorbide dinitrate 20 mg 2 tablets orally 2 times a day. 18. Lorazepam 0.5 mg 1 tablet p.o. every morning and at bedtime. 19. Multaq 400 mg 1 tablet twice a day. 20. Omeprazole 40 mg 1 capsule daily. 21. PreserVision AREDS 2 Softgel, 250/2.5 one capsule twice a day. 22. Ranexa 1000 mg every 12 hours. 23. Symbicort 120 inhalation, 180-4.5, HFA 2 puffs 2 times a day. 24. Baclofen 10 mg 1 p.o. 3 times a day. 25. Abilify 2 mg 1 tablet in the morning. 26. Acid Gone Antacid every 4 hours p.r.n. for reflux. 27. Amoxicillin 500 mg 4 capsules 1 hour prior to a dental appointment. 28. Artificial Tears, ointment instilled 1 inch in both eyes at nighttime. PATIENT'S NAME: WOJCIECH RAGLAND [facility] AGE: 81 Y [address] ROOM: [place] [address] LOCATION: [facility] ADMIT DATE: 06/05/2016 Consultation DISCHARGE DATE: FAMILY PHYSICIAN: Kath Dalton MD ATTENDING PHYSICIAN: Kath Dalton 29. DermOtic 0.01% instill 2 drops in both ears as needed for ear dryness twice daily. 30. LubriFresh PM P/F, 15%-83% ointment instilled 1 inch in both eyes every 2 hours p.r.n. for dry eyes. 31. Magnesium citrate 296 mL p.r.n. daily. 32. Nitrostat 0.3 mg sublingual every 5 minutes as needed for chest pain. 33. Ondansetron HCL 4 mg 1 tablet p.o. every 8 hours as needed for nausea. 34. Polyethylene glycol 17 grams p.o. as needed for constipation. 35. Promethazine-codeine 01/26.5 syrup, give 5 mL every 4 hours as needed for cough. 36. Seragesic 125, 15%-1% 01/26.25/5, apply to sore area. 37. Tramadol 50 mg 1 p.o. daily. 38. Voltaren 1% gel, apply to affected area topically p.r.n. for pain. SOCIAL HISTORY: She is . She lives with her . They are now living at [facility]. Her has Alzheimer's. She is a nonsmoker and nondrinker. FAMILY HISTORY: Significant for coronary artery disease of the elderly. REVIEW OF SYSTEMS: GENERAL: She has been tired. She has not been able to walk a lot due to her MS and she has been a little more short of breath. HEAD: No history of headache. EYES: No blurred vision or double vision. EARS: No problems with hearing. NOSE: No epistaxis or rhinorrhea. MOUTH: No gingival bleeding. THROAT: Denies sore throat, hoarseness, or difficulty swallowing. PULMONARY: She has been short of breath with activity. She has a little orthopneic. CV: As per HPI. GI: Negative for nausea, vomiting, or diarrhea. She does have problems with constipation. No melena or hematochezia. No elevated liver enzymes. GENITOURINARY: Negative for urinary frequency. She has problem problems with chronic urinary tract infections. MUSCULOSKELETAL: Negative for arthralgias or myalgias. She has muscular sclerosis. PHYSICAL EXAMINATION: VITAL SIGNS: She is 4 feet and 11 inches, weighs 169 pounds, blood pressure was 173/88, heart rate was 74 and regular, and respirations were 20. She is afebrile. PATIENT'S NAME: WOJCIECH RAGLAND [facility] AGE: 81 Y [address] ROOM: [place] [address] LOCATION: [facility] ADMIT DATE: 06/05/2016 Consultation DISCHARGE DATE: FAMILY PHYSICIAN: Kath Dalton MD ATTENDING PHYSICIAN: Kath Dalton SKIN: Warm, dry, and pink. She is alert and oriented. Answers questions appropriately. HEENT: Pupils were equal, they did react briskly. NECK: Soft and supple. No lymphadenopathy. No thyromegaly. LUNGS: Lung sounds were with rales throughout. Respirations were a little bit tachycardic especially with talking. She is on O2 at 2 L. CV: Regular with a normal S1 and S2 with a very delayed second heart sound. Grade 3/6 aortic stenotic heart tone. ABDOMEN: Soft. Bowel sounds are present. EXTREMITIES: Showed no peripheral edema, no clubbing, and no cyanosis. Lower extremities, trace of peripheral edema. LABORATORY DATA: Her hemoglobin is 8.5 and hematocrit is 27.9. BUN is 15, creatinine 0.9, sodium 135, and potassium 4.6. ASSESSMENT AND PLAN: 1. Shortness of breath with hypoxia and acute respiratory failure with rales noted on exam. We will start her on Lasix 40 mg IV x1 and plan on an echocardiogram. 2. Aortic stenosis. We will restudy how tight it is with the echocardiogram. 3. Coronary artery disease. She is to continue with her current medications. There is no report of exertional chest heaviness. The assessment and plan, physical exam, and history of present illness are per Dr. Bam Chua. Further recommendations will be forthcoming as information becomes available. LUCHO PEDROZA APRN FOR MD NIKOLAY SOLISP/modl /[id number] d: 06/06/16 2159 t: 06/25/16 1034, CONSULTATION REPORT
--- NOTE | ~2016-06-03 | ER ---
[facility] AGE[facility] 81 Y [address] ROOM: [address] [address] LOCATION: [facility] ADMIT DATE: 06/05/2016 ER/Outpatient Report DISCHARGE DATE: 06/10/2016 FAMILY PHYSICIAN: Kath Dalton MD ATTENDING PHYSICIAN: Kath Dalton CORRECTED PATIENT ACCOUNT INFORMATION PER OPERATIONS 06/21/16 AO Time of Arrival: 0504 hours. Time of Evaluation: 0510 hours. CHIEF COMPLAINT: Shortness of breath. HISTORY OF PRESENT ILLNESS: The patient is an 81-year-old female, who presents to the emergency department today with a chief complaint of shortness of breath. She reports it started 4 days prior to arrival. It is progressing and gotten worse. She does feel fatigued with this. She also has some chest pain off and on. She does report tramadol did help with some relief and she does report it is worse at night at home, but sometimes during the day as well. Denies any fevers or chills. No nausea or vomiting. No diarrhea or constipation. Pain is currently 0/10 in severity. PAST MEDICAL HISTORY: Chronic kidney disease, subdural hematoma, congestive heart failure, hypertension, atrial fibrillation, pulmonary embolism, fluid in the lungs, CVA, gastroesophageal reflux disease, and breast cancer. PAST SURGICAL HISTORY: Stents x13, appendectomy, right total knee, and right mastectomy. SOCIAL HISTORY: The patient denies any tobacco, alcohol, or illicit drug use. ALLERGIES: PLEASE SEE LIST. MEDICATIONS: Please see list. PRIMARY CARE DOCTOR: Dr. Dalton. REVIEW OF SYSTEMS: All systems are reviewed by myself and negative with the exception of those discussed in HPI and past medical history. PATIENT'S NAME: [facility] AGE: 81 Y [address] ROOM: [address] [address] [facility] ADMIT DATE: 06/05/2016 ER/Outpatient Report DISCHARGE DATE: 06/10/2016 FAMILY PHYSICIAN: Kath Dalton MD ATTENDING PHYSICIAN: Kath Dalton PHYSICAL EXAMINATION: VITAL SIGNS: Weight 79.4 kg. Blood pressure 154/67, pulse 73, respiratory rate 18, temperature 96.8, and oxygen saturation 93% on room air. The patient has dropped to 88% on room air at times. She was started on 2 L nasal cannula at that time. GENERAL: The patient is an 81-year-old female, appears stated age, in no acute distress. HEENT: Head: Normocephalic, atraumatic. Eyes: Pupils are equal, round, and reactive to light. NECK: Supple. There is no nuchal rigidity. CARDIOVASCULAR: Regular rate and rhythm. LUNGS: Diminished diffusely. ABDOMEN: Soft, nontender, and nondistended. No rebound, rigidity, or guarding. MUSCULOSKELETAL: The patient moves all 4 extremities. No pretibial edema. SKIN: Warm and dry. LABORATORY DATA AND X-RAYS: CBC is normal except for a hemoglobin 8.5, hematocrit 27.9, otherwise normal. Lactate is normal. Further laboratory analysis is pending. Please see Dr. Mendosa's dictation. IMPRESSION: 1. Dyspnea. 2. Please see Dr. Mendosa's dictation. 3. Initial visit. EMERGENCY DEPARTMENT COURSE: The patient was brought back to the examination room. Seen and evaluated by myself. Laboratory analysis and imaging are obtained as described above. The patient was given a DuoNeb breathing treatment. I have discussed results with Dr. Mendosa at shift change. He will follow up on the patient's laboratory analysis and disposition. Please see his dictation. DISPOSITION/FOLLOW-UP: Per Dr. Mendosa. DO MARANDA PHAM/andrea PATIENT'S NAME: WOJCIECH RAGLAND [facility] AGE: 81 Y [address] ROOM: [place] [address] LOCATION: [facility] ADMIT DATE: 06/05/2016 ER/Outpatient Report DISCHARGE DATE: 06/10/2016 FAMILY PHYSICIAN: Kath Dalton MD ATTENDING PHYSICIAN: Kath Dalton /[id number] CORRECTED PATIENT ACCOUNT INFORMATION PER OPERATIONS 06/21/16 AO d: 06/15/16 1350 t: 03/06/17 0604, OUTPATIENT REPORT
--- NOTE | ~2016-06-03 | HP ---
[facility] AGE: 81 Y [address] ROOM: [place] [address] LOCATION: [facility] [facility] ADMIT DATE: 06/05/2016 History & Physical DISCHARGE DATE: 06/10/2016 FAMILY PHYSICIAN: Kath Dalton MD ATTENDING PHYSICIAN: Kath Dalton DATE OF SERVICE: CHIEF COMPLAINT: Shortness of breath. HISTORY OF PRESENT ILLNESS: The patient is an 81-year-old female who presents to the emergency room with complaints of shortness of breath that has been worsening over the past few days. She has had a significant history of CHF as well as atrial fibrillation and pulmonary embolism. She has intermittent chest pain with this as well. Denies any fevers, no cough, no bowel or bladder complaints. PAST MEDICAL HISTORY: 1. CHF. 2. Hypertension. 3. Atrial fibrillation. 4. History of pulmonary embolism. 5. History of stroke. 6. History of gastroesophageal reflux disease. 7. Chronic kidney disease. 8. Coronary artery disease. 9. Status post appendectomy. 10. Status post right mastectomy. 11. Status post right total knee replacement. 12. History of multiple sclerosis. 13. History of aortic stenosis. 14. Hypertriglyceridemia. MEDICATIONS: 1. Lasix 20 mg daily. 2. Aspirin 81 mg daily. 3. Lamictal 200 mg in the morning. 4. Synthroid 100 mcg daily. 5. Zoloft 150 mg daily. 6. Linzess 145 mg daily. 7. Isosorbide dinitrate 20 mg 2 tablets twice daily. 8. Multaq 400 mg daily. 9. Omeprazole 40 mg daily. 10. Ranexa 1000 mg every 12 hours. PATIENT'S NAME: OBIE [facility] AGE: 81 Y [address] ROOM: [place] [id number] LOCATION: [facility] [place] ADMIT DATE: 06/05/2016 History & Physical DISCHARGE DATE: 06/10/2016 FAMILY PHYSICIAN: Kath Dalton MD ATTENDING PHYSICIAN: Kath Dalton 11. Abilify 2 mg daily. 12. Artificial Tears daily. 13. Symbicort 180/4.5 two puffs twice daily. 14. Clobetasol cream to use as needed. 15. Trazodone 100 mg at nighttime. 16. Bactrim 1/2 tablet at nighttime. 17. Os-Joshua plus D daily. 18. Tramadol 50 mg 1-2 tablets every 6 hours as needed for pain. REVIEW OF SYSTEMS: GENERAL: The patient has complained of fatigue. HEENT: Eyes: Vision diminished. Oropharynx: Denies any odynophagia or dysphagia. CARDIOVASCULAR: She has had chest pain. RESPIRATORY: Positive for shortness of breath. GENITOURINARY: She has history of urinary tract infections. SOCIAL HISTORY: The patient is . Lives with her . FAMILY HISTORY: Positive for coronary artery disease in the family. PHYSICAL EXAMINATION: VITAL SIGNS: Blood pressure 134/67, pulse 73, temperature 96.8, respiratory rate 18, weight 79.4 kg, and O2 saturation 93%. GENERAL: Pleasant, appears to be in mild distress. HEENT: Head is atraumatic, normocephalic. Oropharynx is clear. NECK: There is no adenopathy. HEART: Regular rate and rhythm. LUNGS: No wheezing present. Diminished breath sounds bilaterally. ABDOMEN: Soft, nontender, nondistended. NEUROLOGIC: The patient is alert. LAB AND X-RAY: Please see ER note for details. ASSESSMENT AND PLAN: 1. Congestive heart failure. Plan: The patient will be diuresed, consultation by Cardiology as well. Most likely, need an echocardiogram to reevaluate the aortic valve. Recheck labs in the a.m. 2. Hypertension, stable. The patient is followed by Dr. Dalton, her regular physician in the a.m. PATIENT'S NAME: WOJCIECH RAGLAND [facility] AGE: 81 Y [address] ROOM: [address] [address] LOCATION: [facility] [place] ADMIT DATE: 06/05/2016 History & Physical DISCHARGE DATE: 06/10/2016 FAMILY PHYSICIAN: Kath Dalton MD ATTENDING PHYSICIAN: Kath Dalton DEVONTE KING MD CSM/modl /[id number] D: [id number] T: [id number] HISTORY & PHYSICAL
[~2016-06-03 04:56] MED LIST: ALBUTEROL2.5 MG/31 INH; AMOXICILLIN500 MG PO; ASPIRIN LO-DOSE81 MG PO; ATIVAN 0.5MG0.5 MG PO; BACTRIM DS1 TAB PO; CALCIUM GLUC500 MG; CITROMA296 ML PO; CLOBETASOL EMOL15 GM TOP; DESYREL100 MG PO; ISORDIL20 MG PO; LAMICTAL200 MG PO; LASIX20 MG PO; LEVOTHROID (S100 MCG PO; LINZESS145 MCG PO; LIORESAL10 MG PO; MAG-OX-400(241400 MG PO; MIRALAX17 GM PO; MULTAQ400 MG; MULTAQ400 MG PO; NITROSTAT0.3 MG SL; OMEPRAZOLE40 MG PO; OYSTER SHELL 51 EACH PO; PHENERGAN12.5 MG; PRESERVISION A1 EACH; PRESERVISION A1 EACH PO; RANEXA1000 MG PO; SYMBICORT 16010.2 GM INH; TEARS AGAIN EYE5 GM OPHTH; THERA-GESIC PLU85 GM TOP; TYLENOL EXTRA500 MG PO; ULTRAM50 MG PO; VITAMIN B-121000 MCG PO; VITAMIN D35000 UNIT PO; VOLTAREN 1% GE100 GM TOP; ZOFRAN4 MG PO; ZOLOFT100 MG PO; ZYRTEC10 MG PO; [UNRECOGNIZED DRUG - OTHER] PO
[2016-06-03 05:44] LABS: BASOPHIL % 0.1 %; EOSINOPHIL # 0.1 K/uL (0.0-0.5); EOSINOPHIL % 1.1 %; HEMATOCRIT 27.9 % (30.0-46.0); HEMOGLOBIN 8.5 g/dL (10.0-15.0); IMMATURE GRANULOCYTE # 0.1 K/uL (0.0-0.3); IMMATURE GRANULOCYTE % 0.6 %; LYMPHOCYTE # 1.6 K/uL (0.8-4.0); LYMPHOCYTE % 19.2 %; MCH 25.4 pg (27.0-34.0); MCHC 30.5 gm/dL (32.0-36.5); MCV 83.5 fl (83.0-98.0); MPV 8.2 fl (9.4-12.4); NEUTROPHIL # (ANC) 5.6 K/uL (1.8-7.8); NRBC % 0 /100WBC (0-0.00); PLATELET COUNT 308 K/uL (150-450); RBC 3.34 M/uL (3.00-5.00); RDW-CV 15.9 % (11.9-14.6); WBC 8.3 K/uL (4.0-11.0)
[2016-06-03 05:54] LABS: PROTIME 10.7 SECONDS (9.6-11.1); PTT 24 SECONDS (25-32)
[2016-06-03 06:08] LABS: ALBUMIN 3.5 gm/dL (3.5-5.0); ALK PHOS 95 IU/L (33-138); ALT 10 IU/L (12-78); ANION GAP 12.6 (10.0-19.0); AST 17 IU/L (10-40); BLOOD UREA NITROGEN 15 mg/dL (6-24); CALCIUM 9.1 mg/dL (8.5-10.5); CHLORIDE 100 mMol/L (96-110); CO2 27 mMol/L (22-32); CPK 37 IU/L (21-215); CREATININE 0.9 mg/dL (0.5-1.1); ESTIMATED GFR (MDRD EQUATION) 60; MAGNESIUM 2.3 mg/dL (1.3-2.6); POTASSIUM 4.6 mMol/L (3.7-5.1); SODIUM 135 mMol/L (135-145); TOTAL BILIRUBIN 0.4 mg/dL (0.0-1.5); TOTAL PROTEIN 7.2 g/dL (6.0-8.4)
[2016-06-03 07:57] LABS: CPK 36 IU/L (21-215)
[2016-06-03] MEDS ORDERED: ABILIFY2 MG PO (12:14)
[2016-06-03] MEDS ORDERED: TYLENOL EXTRA500 MG PO (12:15)
[2016-06-03] MEDS ORDERED: [UNRECOGNIZED DRUG - OTHER] OTIC (12:16)
[2016-06-03] MEDS ORDERED: LUBRIFRESH PM3.5 GM OPHTH (12:17)
[2016-06-03] MEDS ORDERED: PHENERGAN WITH15 ML PO (12:17)
[2016-06-04 03:51] LABS: BASOPHIL % 0.2 %; EOSINOPHIL # 0.1 K/uL (0.0-0.5); EOSINOPHIL % 0.9 %; HEMOGLOBIN 8.7 g/dL (10.0-15.0); IMMATURE GRANULOCYTE # 0.1 K/uL (0.0-0.3); IMMATURE GRANULOCYTE % 0.7 %; LYMPHOCYTE # 1.6 K/uL (0.8-4.0); LYMPHOCYTE % 16.1 %; MCH 25.4 pg (27.0-34.0); MCHC 31.1 gm/dL (32.0-36.5); MCV 81.9 fl (83.0-98.0); MONOCYTE # 1.2 K/uL (0.0-1.0); MONOCYTE % 12.2 %; NEUTROPHIL % 69.9 %; NRBC % 0 /100WBC (0-0.00); PLATELET COUNT 311 K/uL (150-450); RBC 3.42 M/uL (3.00-5.00); RDW-CV 15.9 % (11.9-14.6)
[2016-06-04 04:03] LABS: ALBUMIN 3.6 gm/dL (3.5-5.0); ANION GAP 13.2 (10.0-19.0); CALCIUM 9.8 mg/dL (8.5-10.5); CREATININE 1.1 mg/dL (0.5-1.1); PHOSPHORUS 3.1 mg/dL (2.5-4.9); POTASSIUM 4.2 mMol/L (3.7-5.1)
[2016-06-05 04:25] LABS: HEMATOCRIT 27.9 % (30.0-46.0); HEMOGLOBIN 8.6 g/dL (10.0-15.0)
[2016-06-05 04:40] LABS: ALBUMIN 3.3 gm/dL (3.5-5.0); ANION GAP 11.4 (10.0-19.0); CALCIUM 9.5 mg/dL (8.5-10.5); CREATININE 1.2 mg/dL (0.5-1.1); MAGNESIUM 2.4 mg/dL (1.3-2.6); PHOSPHORUS 3.8 mg/dL (2.5-4.9); POTASSIUM 4.4 mMol/L (3.7-5.1)
[2016-06-06 05:19] LABS: BASOPHIL % 0.1 %; EOSINOPHIL # 0.3 K/uL (0.0-0.5); EOSINOPHIL % 3.6 %; HEMATOCRIT 29.5 % (30.0-46.0); HEMOGLOBIN 9.1 g/dL (10.0-15.0); IMMATURE GRANULOCYTE # 0.1 K/uL (0.0-0.3); IMMATURE GRANULOCYTE % 0.7 %; LYMPHOCYTE # 2.6 K/uL (0.8-4.0); LYMPHOCYTE % 30.1 %; MCH 25.1 pg (27.0-34.0); MCHC 30.8 gm/dL (32.0-36.5); MCV 81.5 fl (83.0-98.0); MONOCYTE # 1.3 K/uL (0.0-1.0); MONOCYTE % 15.1 %; MPV 7.9 fl (9.4-12.4); NEUTROPHIL # (ANC) 4.4 K/uL (1.8-7.8); NEUTROPHIL % 50.4 %; NRBC % 0 /100WBC (0-0.00); PLATELET COUNT 321 K/uL (150-450); RBC 3.62 M/uL (3.00-5.00); RDW-CV 15.6 % (11.9-14.6); WBC 8.8 K/uL (4.0-11.0)
[2016-06-06 05:35] LABS: ALBUMIN 3.5 gm/dL (3.5-5.0); ANION GAP 12.3 (10.0-19.0); MAGNESIUM 2.6 mg/dL (1.3-2.6); PHOSPHORUS 4.6 mg/dL (2.5-4.9); POTASSIUM 4.3 mMol/L (3.7-5.1)
[2016-06-07 05:54] LABS: BASOPHIL % 0.1 %; EOSINOPHIL # 0.2 K/uL (0.0-0.5); EOSINOPHIL % 2.2 %; HEMATOCRIT 27.2 % (30.0-46.0); HEMOGLOBIN 8.5 g/dL (10.0-15.0); IMMATURE GRANULOCYTE % 0.5 %; LYMPHOCYTE # 2.1 K/uL (0.8-4.0); LYMPHOCYTE % 23.8 %; MCH 25.3 pg (27.0-34.0); MCHC 31.3 gm/dL (32.0-36.5); MONOCYTE # 1.2 K/uL (0.0-1.0); MONOCYTE % 13.2 %; MPV 7.8 fl (9.4-12.4); NEUTROPHIL # (ANC) 5.2 K/uL (1.8-7.8); NEUTROPHIL % 60.2 %; NRBC % 0 /100WBC (0-0.00); PLATELET COUNT 297 K/uL (150-450); RBC 3.36 M/uL (3.00-5.00); RDW-CV 15.3 % (11.9-14.6); WBC 8.7 K/uL (4.0-11.0)
[2016-06-07 06:09] LABS: ANION GAP 11.2 (10.0-19.0); CALCIUM 9.3 mg/dL (8.5-10.5); POTASSIUM 4.2 mMol/L (3.7-5.1)
[2016-06-07 15:51] LABS: ANION GAP 11.1 (10.0-19.0); CALCIUM 9.2 mg/dL (8.5-10.5); POTASSIUM 4.1 mMol/L (3.7-5.1)
[2016-06-08 05:12] LABS: BASOPHIL % 0.1 %; EOSINOPHIL # 0.2 K/uL (0.0-0.5); EOSINOPHIL % 2.7 %; HEMATOCRIT 25.7 % (30.0-46.0); IMMATURE GRANULOCYTE % 0.5 %; LYMPHOCYTE # 1.9 K/uL (0.8-4.0); LYMPHOCYTE % 24.7 %; MCH 25.2 pg (27.0-34.0); MCHC 30.7 gm/dL (32.0-36.5); MCV 81.8 fl (83.0-98.0); MONOCYTE # 1.1 K/uL (0.0-1.0); MPV 7.8 fl (9.4-12.4); NEUTROPHIL # (ANC) 4.3 K/uL (1.8-7.8); NRBC % 0 /100WBC (0-0.00); PLATELET COUNT 252 K/uL (150-450); RBC 3.14 M/uL (3.00-5.00); RDW-CV 15.2 % (11.9-14.6); WBC 7.5 K/uL (4.0-11.0)
[2016-06-08 05:15] LABS: HEMOGLOBIN 7.9 g/dL (10.0-15.0)
[2016-06-08 05:28] LABS: ANION GAP 14.4 (10.0-19.0); CALCIUM 9.7 mg/dL (8.5-10.5); POTASSIUM 4.4 mMol/L (3.7-5.1)
[2016-06-09 05:08] LABS: BASOPHIL % 0.1 %; EOSINOPHIL # 0.1 K/uL (0.0-0.5); EOSINOPHIL % 0.8 %; HEMATOCRIT 27.1 % (30.0-46.0); HEMOGLOBIN 8.6 g/dL (10.0-15.0); IMMATURE GRANULOCYTE # 0.1 K/uL (0.0-0.3); IMMATURE GRANULOCYTE % 0.5 %; LYMPHOCYTE # 1.3 K/uL (0.8-4.0); LYMPHOCYTE % 8.4 %; MCH 25.4 pg (27.0-34.0); MCHC 31.7 gm/dL (32.0-36.5); MCV 79.9 fl (83.0-98.0); MONOCYTE # 1.6 K/uL (0.0-1.0); MPV 7.7 fl (9.4-12.4); NEUTROPHIL # (ANC) 11.8 K/uL (1.8-7.8); NEUTROPHIL % 79.2 %; NRBC % 0 /100WBC (0-0.00); PLATELET COUNT 251 K/uL (150-450); RBC 3.39 M/uL (3.00-5.00); RDW-CV 14.8 % (11.9-14.6); WBC 14.9 K/uL (4.0-11.0)
[2016-06-09 05:21] LABS: CALCIUM 9.9 mg/dL (8.5-10.5); CREATININE 1.1 mg/dL (0.5-1.1)
[2016-06-10 04:22] LABS: HEMOGLOBIN 8.3 g/dL (10.0-15.0)
[2016-06-10] MEDS ORDERED: LIPITOR40 MG PO (10:58)
[2016-06-10] MEDS ORDERED: FEOSOL325 MG PO (11:05)
[2016-06-10] MEDS ORDERED: OCEAN NASAL) (A44 ML NOSE (11:09)
[2016-06-10] MEDS ORDERED: DULCOLAX10 MG R (11:16)
== END 2016-06-10 14:02 | disposition home health service (06) | DRG 286 ==
LOC: GMED 04:56 → GPCU 08:34 → GICU 06-05 08:10 → GPCU 06-05 08:10 → GICU 06-06 14:50 → GNTU 06-08 15:00
PROVIDERS: Emergency Medicine; Family Medicine; Internal Medicine Hematology & Oncology; Internal Medicine Interventional Cardiology; Nurse Practitioner Acute Care; ADMIT Family Medicine
DX: I13.0 Hypertensive heart and chronic kidney disease with heart failure and stage 1 through stage 4 chronic kidney disease, or unspecified chronic kidney disease (principal); J96.01 Acute respiratory failure with hypoxia; I95.9 Hypotension, unspecified; I27.2 Other secondary pulmonary hypertension; E87.1 Hypo-osmolality and hyponatremia; R00.1 Bradycardia, unspecified; G35 Multiple sclerosis; K74.60 Unspecified cirrhosis of liver; I50.33 Acute on chronic diastolic (congestive) heart failure; T82.855A Stenosis of coronary artery stent, initial encounter; K59.00 Constipation, unspecified; I25.10 Atherosclerotic heart disease of native coronary artery without angina pectoris; I48.0 Paroxysmal atrial fibrillation; Z86.73 Personal history of transient ischemic attack (TIA), and cerebral infarction without residual deficits; Z86.711 Personal history of pulmonary embolism; I08.3 Combined rheumatic disorders of mitral, aortic and tricuspid valves; E03.9 Hypothyroidism, unspecified; Z99.3 Dependence on wheelchair; N18.3 Chronic kidney disease, stage 3 (moderate); H35.30 Unspecified macular degeneration; K44.9 Diaphragmatic hernia without obstruction or gangrene; M15.9 Polyosteoarthritis, unspecified; M41.9 Scoliosis, unspecified; L40.9 Psoriasis, unspecified; F31.9 Bipolar disorder, unspecified; K21.9 Gastro-esophageal reflux disease without esophagitis; E78.5 Hyperlipidemia, unspecified; M81.0 Age-related osteoporosis without current pathological fracture; D50.9 Iron deficiency anemia, unspecified; E66.9 Obesity, unspecified; Z68.34 Body mass index [BMI] 34.0-34.9, adult; K58.9 Irritable bowel syndrome, unspecified; Z85.3 Personal history of malignant neoplasm of breast; Z96.651 Presence of right artificial knee joint; Z79.82 Long term (current) use of aspirin; Z79.899 Other long term (current) drug therapy; Z82.49 Family history of ischemic heart disease and other diseases of the circulatory system
CPT/HCPCS: C1760; C1769; G0378; G8981; G8982; G8983; G8990; G8991; G8992; J0461; J1644; J1940; J2250; J2370; J2405; J3010; J7030; J7050; J7060; P9016; P9047; Q9967

== ENCOUNTER 2016-06-11 17:35 | Inpatient (IN) | payer MEDICARE, OTHER ==
[~2016-06-11] VITALS: Ht 152.4 cm; Wt 76.0 kg
--- NOTE | ~2016-06-11 | DS ---
PATIENT'S NAME: WOJCIECH RAGLAND [facility] AGE: 81 Y [address] ROOM: [id number] [place], [place] [address] LOCATION: [facility] ADMIT DATE: 06/13/2016 Discharge Summary DISCHARGE DATE: 06/14/2016 FAMILY PHYSICIAN: Kath Dalton MD ATTENDING PHYSICIAN: Kath Dalton ADMISSION DIAGNOSES: Orthostatic hypotension, falls, severe aortic stenosis, anemia, multiple sclerosis, bipolar disorder, congestive heart failure, and constipation DISCHARGE DIAGNOSIS: Severe aortic stenosis, anemia and status post 1 unit PRBCs which is 2nd total unit transfused between her most recent two hospitalizations, and also bipolar disorder, multiple sclerosis, congestive heart failure, and constipation. HOSPITAL COURSE: The patient is an 81-year-old female who was readmitted to [facility] on June 11, 2016 after a fall. She was found to have orthostatic hypotension. She ready has known severe aortic stenosis. She had actually seen Dr. Chua that day as an outpatient with her daughter for consideration of a possible TAVR procedure. She was admitted from his clinic. Her Lasix was stopped and her Imdur was decreased to 20 mg twice a day to 20 mg once daily on discharge. On June 10, her hemoglobin was 8.3, it was up to 9.2 on June 11, the day of admission. She was on iron 325 mg p.o. b.i.d. She and her daughter indicate to me that she was DNR/DNI. They also indicated that they were very reluctant to proceed with any sort of procedure such as a TAVR procedure due to her weakness and frailty and their belief that she would not do well with the procedure and she is not very active on a daily basis. Disposition plans were arranged with Care Management and Social Work to [place] in a [place] per the patient's and the daughter's request and my encouragement. On the morning of June 13, her hemoglobin was found to be 8.9. Her TSH was elevated 9.03, T4 normal at 8. She was still feeling weak, dizzy, and fatigued. I recommended transfusion of another unit of PRBCs with premedication and Lasix 20 mg IV afterwards. I adjusted her levothyroxine dose up to 125 mcg per day from 100 mcg per day. She had a fall on June 12. On June 13, I x-rayed her lumbar sacral spine, right hip and pelvis, there was no indication of acute fracture. She was transitioned to inpatient status on June 13, 2016. On June 14, 2016, she was doing better. Her hemoglobin up to 9.9. At [facility] had availability and she is being transferred there for longterm care. DISPOSITION: To [facility] for longterm care with PATIENT'S NAME: WOJCIECH RAGLAND [facility] AGE: 81 Y [address] ROOM: [id number] [place], [place] [address] LOCATION: [facility] ADMIT DATE: 06/13/2016 Discharge Summary DISCHARGE DATE: 06/14/2016 FAMILY PHYSICIAN: Kath Dalton MD ATTENDING PHYSICIAN: Kath Dalton physical therapy and occupational therapy. FOLLOWUP: She already has a followup appointment scheduled with myself, Hematology, and Dr. Chua, Cardiology. The dates and times of these appointments will be confirmed. CODE STATUS: She is a DNR/DNI. MEDICATIONS: 1. Tylenol 500 mg p.o. q.h.s. and 500 mg p.o. q.4 hours p.r.n. pain. 2. Abilify 2 mg p.o. daily. 3. Aspirin EC 81 mg p.o. daily. 4. Lipitor 40 mg p.o. q.h.s. 5. Baclofen 10 mg p.o. t.i.d. 6. Zyrtec 10 mg p.o. daily. 7. Vitamin B12 1000 mcg p.o. daily. 8. Multaq 400 mg p.o. twice daily. 9. Iron 325 mg p.o. twice daily. 10. Isosorbide 20 mg p.o. daily (this is a dose change down from 20 mg p.o. b.i.d.). 11. Levothyroxine 125 mcg p.o. daily (this is a dose change up from 100 mcg p.o. daily). 12. Magnesium oxide 400 mg p.o. daily. 13. Omeprazole 40 mg p.o. daily. 14. Ranexa 1000 mg p.o. twice daily. 15. Zoloft 150 mg p.o. daily. 16. Almyra nasal spray, one spray each nostril twice daily. 17. Bactrim DS 1/2 tablet p.o. q.h.s. 18. Trazodone 100 mg p.o. q.h.s. 19. Albuterol sulfate 2.5 mg/3 mL nebulizer q.h.s. 20. Artificial Tears one each ophthalmic both eyes p.r.n. irritation. 21. Dulcolax 10 mg [place] daily p.r.n. constipation. 22. Magnesium citrate 296 mL p.o. q.48 hours p.r.n. constipation. 23. Voltaren 1% gel applied twice daily p.r.n. pain. 24. Thera-Gesic Plus cream p.r.n. pain. 25. Lorazepam 0.5 mg p.o. b.i.d. p.r.n. (this is a dose change from 0.5 mg p.o. b.i.d. scheduled). 26. Nitroglycerin 0.3 mg sublingual q.5 minutes p.r.n. chest pain. 27. Zofran 4 mg p.o. q.8 hours p.r.n. nausea. 28. MiraLAX 17 g p.o. daily p.r.n. constipation. 29. Tramadol 50 mg p.o. t.i.d. p.r.n. pain. 30. Phenergan with Codeine 5 mL p.o. q.4 hours p.r.n. cough. 31. Calcium carbonate/vitamin-D 500 mg 2.5 tabs p.o. daily. 32. Lamictal 200 mg p.o. daily. 33. Linzess 145 mcg p.o. daily. PATIENT'S NAME: WOJCIECH RAGLAND [facility] AGE: 81 Y [address] ROOM: [place] [address] LOCATION: [facility] ADMIT DATE: 06/13/2016 Discharge Summary DISCHARGE DATE: 06/14/2016 FAMILY PHYSICIAN: Kath Dalton MD ATTENDING PHYSICIAN: Kath Dalton 34. PreserVision one capsule p.o. twice daily. 35. Symbicort 160/4.5, two puffs inhaled twice daily. 36. Vitamin D3 5000 units p.o. daily. 37. Antacid 30 mL p.o. q.4 hours p.r.n. reflux. 38. Amoxicillin 2000 mg p.o. one time, 1 hour prior to dental procedure. 39. Clobetasol emollient 0.05% cream two days per week on Saturdays and Sundays. 40. DermOtic two drops otic twice daily p.r.n. ear dryness. 41. Lubrifresh ointment one each ophthalmic q.2 hours p.r.n. dry eyes. 42. Lasix 20 mg daily has been discontinued. 43. CPAP at h.s. per home settings. MD LYNNE VAZQUEZ/andrea /[id number] d: 06/14/16 1130 t: 06/25/16 0027, DISCHARGE SUMMARY
--- NOTE | ~2016-06-11 | HP ---
PATIENT'S NAME: WO[facility]CI[facility]CH [facility] AGE: 81 Y [address] ROOM: [id number] [place], [place] [address] LOCATION: GPCU ADMIT DATE: 06/11/2016 History & Physical DISCHARGE DATE: FAMILY PHYSICIAN: Kath Dalton MD ATTENDING PHYSICIAN: Kath Dalton CHIEF COMPLAINT: Falling in parking lot on way to appointment with Dr. Chua. HISTORY OF PRESENT ILLNESS: The patient is an 81-year-old, female, who was just discharged from a seven day admission on June 10, 2016. She lives at [facility] with her . She is mobile via her electric wheelchair. She was admitted for a CHF exacerbation. She was diuresed. She has been found to be anemic. She was transfused 1 unit. She is discharged with a hemoglobin of 8.3 on June 10. Iron studies showed she was iron deficient. Dr. Rojo was consulted. Her Hemoccult test was negative x1. No evidence of hemolysis on blood work. She has been started on oral iron. She is also found during the hospitalization to have severe aortic stenosis. She follows with Dr. Chua. There has been consideration of a possible TAVR procedure. The patient was actually seeing Dr. Chua in the office yesterday as an outpatient to discuss the potential of this procedure with her daughter. She was evaluated in Dr. Chua's office yesterday. Found to have some superficial abrasions to her arms and legs. It was found to be orthostatic with hypotensive with a seated blood pressure of 114/56 and a pulse of 67 to a standing blood pressure of 100/50 with a pulse of 70. It was discussed with her daughter that currently she is too weak and frail for consideration of the TAVR procedure. In addition, she needs extra assistance and we need to look at skilled placement. The daughter request first choice at [facility] and second choice at [facility] as they have had personal experience at those facilities previously. REVIEW OF SYSTEMS: The patient denies any headache or dizziness. At the current time, when I am evaluating her, seated in a chair. She reports she did feel dizzy when she was walking to the parking lot earlier today. She denies any chest pain. Denies shortness of breath. Denies cough, runny nose, sore throat. Denies fevers or chills. Denies nausea or vomiting. Notes constipation, but she did have a bowel movement in earlier today. Denies problems with her bladder. Denies nausea or vomiting. PAST MEDICAL HISTORY: PATIENT'S NAME: WOJCIECH [facility] AGE: 81 Y [address] ROOM: [place] [address] [facility] AD[facility] DATE: 06/11/2016 History & Physical DISCHARGE DATE: FAMILY PHYSICIAN: Kath Dalton MD ATTENDING PHYSICIAN: Kath Dalton 1. Severe aortic stenosis, echocardiogram done last week. 2. Grade 3 restrictive diastolic dysfunction. 3. Baosmtgq-mv-mqqgqd mitral regurgitation with mild mitral annular calcification. 4. Xlxwkkqu-gr-wesiqe tricuspid regurgitation. 5. Severe pulmonary hypertension with pulmonary pressure of 95 mmHg. 6. Moderate aortic regurgitation. 7. Perennial rhinitis. 8. Paroxysmal atrial fibrillation. 9. Questionable history of seizure disorder. 10. Multiple sclerosis diagnosed in 1964. 11. Atherosclerotic vascular disease. 12. Bilateral macular degeneration, wet. 13. Atherosclerotic heart disease, treated with previous PTCA and stenting. 14. Hyperlipidemia. 15. Hypertension. 16. Osteoarthritis. 17. Type 1 bipolar disorder. 18. Hypothyroidism status post thyroid resection in 1964 for benign disease. 19. GERD. 20. Osteoporosis. 21. IBS predominant constipation. PAST SURGICAL HISTORY: 1. Tonsillectomy in 1950. 2. She is a G6, P5. 3. Appendectomy and exploratory surgery in 1956. 4. Excision of benign thyroid growth in 1964. 5. Left lower leg venous stripping in 1969. 6. Vaginal hysterectomy in 1979. 7. Right total knee arthroplasty in 1994. 8. Right ankle reconstruction in 1994. 9. Right modified radical mastectomy for right-sided breast cancer in 1994. 10. Heart cath with PTCA and stenting in 2004. 11. Bilateral hemilaminectomy and lateral recess decompression L2 through S1 in 2005. 12. Bilateral cataract extraction in 2006. 13. PE in 2007. 14. Left heart catheterization in 2008 and May 2016. 15. Subdural hematoma, no operation necessary in 2010. 16. Laparoscopic ángel in 2011. MEDICATIONS: 1. Tylenol extra-strength 500 mg p.o. at bedtime and q.4 hours p.r.n. 2. Albuterol nebulizer at bedtime. PATIENT'S NAME: WOJCIECH [facility] AGE: 81 Y [address] ROOM: [id number] [place] [address] [facility] ADMIT DATE: 06/11/2016 History & Physical DISCHARGE DATE: FAMILY PHYSICIAN: Kath Dalton MD ATTENDING PHYSICIAN: Kath Dalton 3. Amoxicillin 2000 mg 1 hour prior to dental work. 4. Abilify 2 mg p.o. daily. 5. Artificial tears both eyes as needed p.r.n. 6. Aspirin EC 81 mg daily. 7. Lipitor 40 mg at bedtime. 8. Baclofen 10 mg p.o. t.i.d. 9. Dulcolax 10 mg daily p.r.n. constipation. 10. Symbicort 160/4.5 mcg two puffs inhaled twice daily. 11. Calcium carbonate/vitamin D3, 2.5 tablets p.o. daily. 12. Zyrtec 10 mg p.o. daily. 13. Vitamin D3, 5000 units daily. 14. Clobetasol ointment 0.05% to rash twice daily as needed. 15. Vitamin B12, 1000 mcg p.o. daily. 16. Voltaren 1% gel topical twice daily p.r.n. 17. Multaq 400 mg p.o. twice daily. 18. Ferrous sulfate 325 mg p.o. twice daily. 19. Lasix 20 mg p.o. q.48 hours (which Dr. Chua is recommending to discontinue on admission to the hospital). 20. Isordil 20 mg p.o. b.i.d. (which Dr. Chua is recommending to decrease to 20 mg daily on admission to hospital). 21. Lamictal 200 mg p.o. daily. 22. Levothyroxine 100 mcg p.o. daily. 23. Linzess 145 mcg p.o. daily. 24. Ativan 0.5 mg p.o. b.i.d. p.r.n. anxiety. 25. Magnesium citrate 296 mL p.o. q.48 hours p.r.n. constipation. 26. Mag oxide 400 mg p.o. daily. 27. Duragesic plus cream topical p.r.n. pain. 28. Mineral oil LubriFresh ointment to dry eyes q.2 hours p.r.n. both eyes. 29. Nitroglycerin 0.3 mg sublingual p.r.n. chest pain. 30. Omeprazole 40 mg p.o. daily. 31. Zofran 4 mg p.o. q.8 hours p.r.n. nausea and vomiting. 32. MiraLax 17 g p.o. daily. 33. Phenergan with codeine 5 mL p.o. q.4 hours p.r.n. cough. 34. Ranexa ER 1000 mg p.o. b.i.d. 35. Zoloft 150 mg p.o. daily. 36. Sundown nasal spray b.i.d. 37. Bactrim DS half tablet p.o. at bedtime. 38. Tramadol 50 mg p.o. t.i.d. p.r.n. pain. 39. Trazodone 100 mg p.o. at bedtime. 40. Antacid 30 mL p.o. q.4 hours p.r.n. reflux. 41. DermOtic two drops twice daily for ear dryness p.r.n. 42. PreserVision one caplet twice daily. PHYSICAL EXAMINATION: VITAL SIGNS: Blood pressure 148/66, pulse 65, respiratory rate 15, PATIENT'S NAME: WO[facility]CI[facility]CH [facility] AGE: 81 Y [address] ROOM: [place] [address] [facility] ADMIT DATE: 06/11/2016 History & Physical DISCHARGE DATE: FAMILY PHYSICIAN: Kath Dalton MD ATTENDING PHYSICIAN: Kath Dalton temperature 98.2. GENERAL: She is awake, alert, and oriented. No signs of distress. HEART: Regular rate and rhythm, grade 3/6 systolic ejection murmur best heard on the right side. LUNGS: Clear to auscultation throughout. ABDOMEN: Obese soft, nontender, nondistended. No masses palpated. No guarding or rebound tenderness. EXTREMITIES: 1+ pitting edema in bilateral lower extremities. Extensive bruising at different stages on her arms and legs. Superficial abrasion to arms and legs wrapped from fall yesterday. ASSESSMENT AND PLAN: 1. Orthostatic hypotension. We will monitor I's and O's and daily weights. We have decreased her Imdur to 20 mg daily and stopped her Lasix. 2. Anemia. Iron deficient. Was proceeding with workup as an outpatient with Dr. Rojo. On oral iron 325 mg p.o. b.i.d. Iron was 8.3 on June 10 and up to 9.2 on day of admission. 3. Severe aortic stenosis. Has been working with Dr. Chua with discussion of possible TAVR procedure. At this point, she is too weak to proceed. She and her daughter are considering whether or not they want to proceed with this. 4. Constipation. Doing well as long as rectal suppositories are used as needed. 5. Congestive heart failure. Stable. 6. We need assistance from case management and social work with detention/skilled placement. Daughter and patient are requesting [facility] as first choice and [facility] as second choice as they have had personal experience with both these facilities. 7. She is a DNR/DNI. MD LYNNE VAZQUEZ/andrea /[id number] D: 217 T: 024 HISTORY & PHYSICAL
[~2016-06-11 17:35] MED LIST changes: +ABILIFY2 MG PO; +DULCOLAX10 MG R; +FEOSOL325 MG PO; +LIPITOR40 MG PO; +LUBRIFRESH PM3.5 GM OPHTH; +OCEAN NASAL) (A44 ML NOSE; +PHENERGAN WITH15 ML PO; +[UNRECOGNIZED DRUG - OTHER] OTIC
--- NOTE | 2016-06-11 19:00 | NUR ---
Patient is 81 yo female admitted this evening after 2 falls today. one at [facility] and one in the parking lot at Dr. Chua's office. patient did experience orthostatic hypotension at the office as well. patient's daughter does accompany patient, she is a RN and very knowledgeable on patient's condition and has POA, she states patient is DNR. patient does have 3 skin tears from her falls today. one on the right upper arm, one on the right lower leg, one on the left lower leg, left one is covered w/ ritesh as daughter states it didn't want to stop bleeding. Education is given as documented. patient and daughter deny questions. call light is within reach. daughter questions if patient will be able to use the call light however. Report is given to GLORIA Panchal.
[2016-06-12 04:36] LABS: BASOPHIL % 0.2 %; EOSINOPHIL # 0.2 K/uL (0.0-0.5); EOSINOPHIL % 1.8 %; HEMATOCRIT 28.7 % (30.0-46.0); HEMOGLOBIN 8.8 g/dL (10.0-15.0); IMMATURE GRANULOCYTE # 0.1 K/uL (0.0-0.3); IMMATURE GRANULOCYTE % 0.7 %; LYMPHOCYTE # 1.8 K/uL (0.8-4.0); LYMPHOCYTE % 21.5 %; MCH 25.4 pg (27.0-34.0); MCHC 30.7 gm/dL (32.0-36.5); MCV 82.9 fl (83.0-98.0); MONOCYTE # 1.3 K/uL (0.0-1.0); MONOCYTE % 15.1 %; MPV 8.1 fl (9.4-12.4); NEUTROPHIL # (ANC) 5.1 K/uL (1.8-7.8); NEUTROPHIL % 60.7 %; NRBC % 0 /100WBC (0-0.00); PLATELET COUNT 273 K/uL (150-450); RBC 3.46 M/uL (3.00-5.00); RDW-CV 15.8 % (11.9-14.6); WBC 8.4 K/uL (4.0-11.0)
[2016-06-12 05:15] LABS: ANION GAP 12.8 (10.0-19.0); CALCIUM 9.3 mg/dL (8.5-10.5); CREATININE 0.9 mg/dL (0.5-1.1); POTASSIUM 3.8 mMol/L (3.7-5.1)
--- NOTE | 2016-06-12 06:44 | NUR ---
Significant Event: A/0X3. FORGETFUL. UP IN CHAIR ALL NIGHT. 1A WITH WALKER TO BR. AFEBRILE. VSS ON RA. 1L OF 02 AT HS. SCHEDULED TYLENOL GIVEN AT HS. NO C/O OF PAIN. IV TO L) FA SL. VOIDS FINE. NO BM THIS SHIFT. DRESSED SKIN TEARS TO R) ARM, R) AND L) LEG WITH KERLEX GAUZE, AND PETROLEUM GAUZE. Follow up: CONTINUE WITH PLAN OF CARE. WORK ON NH PLACEMENT.
--- NOTE | 2016-06-12 13:05 | NUR ---
Introduced self and role of care management to patient. She lives with her at [facility]. She states that she is able to do some of her own ADL's. She states that the staff assists as needed. We discussed that the dr feels she needs at skilled stay before going back to the [facility] She states that she would like [facility] since her was just there and she liked the facillity. I called and spoek with Giulia at [facility] and faxed referral information. Will continue to follow.
--- NOTE | 2016-06-12 13:14 | NUR ---
I called and spoke with patient's daughter Connie. She is patients POA. She states that all decisions need to made by herself and her siblings regarding patient's care. She is in agreement with the need of a skilled stay. She would like [facility] first choice and [facility] as second choice. I will keep her updated.
--- NOTE | 2016-06-12 14:49 | NUR ---
Received call from Giulia at [facility]. They can accept patient for admission on Friday. Daughter Connie updated.
--- NOTE | 2016-06-12 17:17 | NUR ---
Significant Events: Patient A&Ox3 but forgetful. HIGH FALL RISK. Last fall 06/12/16 on PCU. POA and notified. Patient can not be left alone in bathroom. VSS on RA. Crackles present on bilateral lung bases. Afebrile. Tylenol given x 1 for pain. L)forearm IV saline locked. PT/OT consulted. Follow-up: Continue as per plan of care. Planned discharge to [facility] at 1400 on Friday
[2016-06-13 04:04] LABS: BASOPHIL % 0.2 %; EOSINOPHIL # 0.2 K/uL (0.0-0.5); EOSINOPHIL % 2.5 %; HEMATOCRIT 28.8 % (30.0-46.0); HEMOGLOBIN 8.9 g/dL (10.0-15.0); IMMATURE GRANULOCYTE # 0.1 K/uL (0.0-0.3); IMMATURE GRANULOCYTE % 0.7 %; LYMPHOCYTE # 2.2 K/uL (0.8-4.0); LYMPHOCYTE % 27.5 %; MCH 25.5 pg (27.0-34.0); MCHC 30.9 gm/dL (32.0-36.5); MCV 82.5 fl (83.0-98.0); MONOCYTE # 1.1 K/uL (0.0-1.0); MPV 8.2 fl (9.4-12.4); NEUTROPHIL # (ANC) 4.5 K/uL (1.8-7.8); NEUTROPHIL % 55.1 %; NRBC % 0 /100WBC (0-0.00); PLATELET COUNT 273 K/uL (150-450); RBC 3.49 M/uL (3.00-5.00); RDW-CV 16.1 % (11.9-14.6); WBC 8.1 K/uL (4.0-11.0)
[2016-06-13 04:24] LABS: CALCIUM 9.2 mg/dL (8.5-10.5); CREATININE 0.9 mg/dL (0.5-1.1)
--- NOTE | 2016-06-13 05:18 | NUR ---
Significant Event: A/0X3. FORGETFUL. RESTED IN CHAIR ALL OF SHIFT. CHAIR ALARM ON. NO ATTEMPTS TO GET UP WITHOUT ASSISTENCE. PATIENT REFUSED TO SLEEP IN BED. AFEBRILE. VSS ON RA. 1L OF 02 AT HS. SCHEDULED TYLENOL GIVEN AT HS AND NO C/O OF PAIN SINCE. IV TO L) FA SL. VOIDS FINE. NO BM THIS SHIFT. Follow up: CONTINUE WITH PLAN OF CARE.
--- NOTE | 2016-06-13 14:49 | NUR ---
Updated patients daughter Connie of admission to [facility] 06/14/2016 at 1400.
--- NOTE | 2016-06-13 19:02 | NUR ---
Significant Event: Patient A/O x 3. Forgetful. Last fall 06/12/16 on PCU. HIGH FALL RISK!!! Not to be left alone when up or off alarms at any time. VSS on RA. 1L while sleeping. Normally wears CPAP at night. Given 1 unit PRBC's followed by IV lasix today for Hgb of 8.9. Patient reports feeling very tired throughout the day. Orthostatic BP's negative this morning. Follow up: Continue as per plan of care. Plan to discharge to [facility] tomorrow at 1400.
[2016-06-14 04:08] LABS: HEMATOCRIT 31.7 % (30.0-46.0); HEMOGLOBIN 9.9 g/dL (10.0-15.0)
--- NOTE | 2016-06-14 05:09 | NUR ---
Significant Event: Patient alert and oriented but forgetful. VSS. Patient wears 1L oxygen at HS. Tylenol given at HS with relief noted. Up with 1 assist to bedside commode. Rested well through out shift. Pleasant and cooperative with cares. [facility] today. Follow up: continue to monitor, transfer
--- NOTE | 2016-06-14 09:00 | NUR ---
Received a call from Giulia at [facility], they would like to pick patient up earlier than planned 1400 d/t some cancellations in the van schedule. Arrangements made for patient to be picked up at 1130. I called and updated patients daughter Connie. Patients nurse Camille also updated on time change.
== END 2016-06-14 11:30 | DRG 312 ==
LOC: GPCU 17:37
PROVIDERS: ADMIT Family Medicine
PROC: 30233N1 Transfusion of Nonautologous Red Blood Cells into Peripheral Vein, Percutaneous Approach (ICD-10-PCS; principal; 2016-06-13)
DX: I95.1 Orthostatic hypotension (principal); I27.2 Other secondary pulmonary hypertension; G35 Multiple sclerosis; I48.0 Paroxysmal atrial fibrillation; I50.9 Heart failure, unspecified; E03.9 Hypothyroidism, unspecified; E78.2 Mixed hyperlipidemia; I10 Essential (primary) hypertension; I08.3 Combined rheumatic disorders of mitral, aortic and tricuspid valves; E66.9 Obesity, unspecified; D50.9 Iron deficiency anemia, unspecified; Z66 Do not resuscitate; R53.1 Weakness; F31.9 Bipolar disorder, unspecified; K59.00 Constipation, unspecified; Z68.32 Body mass index [BMI] 32.0-32.9, adult; K21.9 Gastro-esophageal reflux disease without esophagitis; I25.10 Atherosclerotic heart disease of native coronary artery without angina pectoris; G47.33 Obstructive sleep apnea (adult) (pediatric); W18.30XA Fall on same level, unspecified, initial encounter; M81.0 Age-related osteoporosis without current pathological fracture; Z95.5 Presence of coronary angioplasty implant and graft; Z96.651 Presence of right artificial knee joint; Z79.82 Long term (current) use of aspirin; Z79.899 Other long term (current) drug therapy; Z85.3 Personal history of malignant neoplasm of breast; Z86.711 Personal history of pulmonary embolism; Z86.73 Personal history of transient ischemic attack (TIA), and cerebral infarction without residual deficits
CPT/HCPCS: G0378; G0379; J1940; J7050; P9016

== ENCOUNTER → 2016-06-21 | Outpatient (CLI) | payer MEDICARE, OTHER ==
[2016-06-21 18:13] LABS: BASOPHIL # 0.1 K/uL (0.0-0.2); EOSINOPHIL # 0.4 K/uL (0.0-0.5); EOSINOPHIL % 5.1 %; HEMOGLOBIN 14.7 g/dL (10.0-15.0); IMMATURE GRANULOCYTE # 0.1 K/uL (0.0-0.3); IMMATURE GRANULOCYTE % 0.7 %; LYMPHOCYTE % 28.4 %; MONOCYTE # 0.6 K/uL (0.0-1.0); MONOCYTE % 8.6 %; MPV 10.9 fl (9.4-12.4); NEUTROPHIL % 56.2 %; NRBC % 0 /100WBC (0-0.00); PLATELET COUNT 300 K/uL (150-450); WBC 7.1 K/uL (4.0-11.0)
[2016-06-21 18:14] LABS: HEMATOCRIT 46.3 % (30.0-46.0); MCH 29.4 pg (27.0-34.0); MCHC 31.7 gm/dL (32.0-36.5); MCV 92.6 fl (83.0-98.0); RDW-CV 13.3 % (11.9-14.6)
== END | disposition disaster alternative care site (69) ==
PROVIDERS: Family Medicine
DX: D50.9 Iron deficiency anemia, unspecified (principal)

== ENCOUNTER 2016-07-06 20:06 | Emergency (ER) | payer MEDICARE, OTHER ==
--- NOTE | ~2016-07-06 | ER ---
[facility] AGE: 81 Y [address] ROOM: [place] [address] LOCATION: [facility] ADMIT DATE: 07/06/2016 ER/Outpatient Report DISCHARGE DATE: 07/06/2016 FAMILY PHYSICIAN: Kath Dalton MD ATTENDING PHYSICIAN: Alvaro Wilkins Time of Arrival: Admission date and time documented on the medical record. Time of Evaluation: I saw the patient at 2015 hours. CHIEF COMPLAINT: Shortness of breath, abdominal pain, productive cough, nausea, and intermittent chest pain. HISTORY OF PRESENT ILLNESS: The patient is an 81-year-old female, who presented with a 24-to 36-hour history of mid upper abdominal pain, shortness of breath, and intermittent left chest pain. She has exertional dyspnea. She has swollen ankles, fluid retention. She has some nausea, but no vomiting or diarrhea. Productive cough of clear sputum. No lightheadedness, dizziness, syncope or near syncope. No fall or trauma. No recent cough, cold, flus, fever, chills, or sweats. No urinary symptoms. No joint or muscle swelling, redness, or pain other than the peripheral edema. No skin eruptions or rash. History of bipolar disorder with depression, anxiety. She has hypothyroidism, no diabetes. She has had a cerebrovascular accident. HOME MEDICATIONS: See attached medication list. ALLERGIES: PENICILLIN, ERYTHROMYCIN, CECLOR, DOXYCYCLINE, MORPHINE SULFATE, FLOXIN, LEVAQUIN, NITROGLYCERIN, AND LANOXIN. SOCIAL HISTORY: Nonsmoker, nondrinker. SIGNIFICANT PAST MEDICAL HISTORY: Atherosclerotic ischemic heart disease with coronary artery disease, valvular heart disease with aortic stenosis, congestive heart failure, paroxysmal atrial fibrillation, seizure disorder, pulmonary embolism, cerebrovascular accident, gastroesophageal reflux, chronic kidney disease, degenerative joint disease, multiple sclerosis, dyslipidemia, hypothyroidism, bipolar disorder with depression, anxiety, subdural hematoma, pneumonia, urinary tract infection, and breast cancer. OPERATIONS: [facility] AGE: 81 Y [address] ROOM: [place] [address] LOCATION: [facility] ADMIT DATE: 07/06/2016 ER/Outpatient Report DISCHARGE DATE: 07/06/2016 FAMILY PHYSICIAN: Kath Dalton MD ATTENDING PHYSICIAN: Alvaro Wilkins Right mastectomy, appendectomy, cardiac catheterization with PTCA and stenting, and right total knee arthroplasty. REVIEW OF SYSTEMS: All systems reviewed by me are negative with the exception of those discussed in the history of present illness. PHYSICAL EXAMINATION: VITAL SIGNS: Temperature 99, pulse 83, respirations 18, blood pressure 137/60, and O2 saturations on 3 L of oxygen per nasal cannula is 99%. HEAD: Normocephalic. No abrasion, contusion, laceration, or swelling of the scalp or face. EYES: Extraocular muscles intact. PERRL. Sclerae and conjunctivae clear, nonicteric. EARS: Clear TMs bilaterally. NOSE: Clear. THROAT: Clear. Mucous membranes moist. NECK: Negative. LUNGS: Basilar rales, otherwise negative. HEART: Regular. Pulses palpable. ABDOMEN: Soft. Nondistended. Good bowel tones. No organomegaly or abnormal mass palpable. No CVA tenderness. EXTREMITIES: With peripheral edema. No cyanosis. No deformity. NEUROVASCULAR: Intact. SKIN: Clear. No skin eruptions or rash. LABORATORY DATA AND X-RAYS: Chest x-ray shows cardiomegaly and increased vascular congestion consistent with congestive heart failure. EKG showed sinus rhythm. No acute ST elevation, ischemic change, or arrhythmia x2, 2 hours apart. CPK was normal x2, 2 hours apart. Iwdlc-og-ejgr cardiac enzymes were normal x2, 2 hours apart. White count was 10,500, 73 segs, 14 lymphs, 11 monos, 1 eosinophil; hemoglobin was 9.1 with hematocrit 29.1; platelet count was 219,000. PTT was 26, pro-time was 11.8 with an INR of 1.1. CMS was normal except for an elevated glucose 129, magnesium was 2.3, proBNP was 3394. EMERGENCY DEPARTMENT COURSE: Did give the patient 40 mg Lasix IV here in the emergency department. She did diurese 1000 mL plus of urine. IMPRESSION: 1. Fluid overload, congestive heart failure. 2. History of valvular heart disease with aortic stenosis. 3. Atherosclerotic ischemic heart disease with coronary artery disease. 4. Paroxysmal atrial fibrillation. PATIENT'S NAME: WOJCIECH R[facility]LAND [facility] AGE: 81 Y [address] ROOM: [place] [address] LOCATION: [facility] ADMIT DATE: 07/06/2016 ER/Outpatient Report DISCHARGE DATE: 07/06/2016 FAMILY PHYSICIAN: Kath Dalton MD ATTENDING PHYSICIAN: Alvaro Wilkins 5. Past history of cerebrovascular accident. 6. Past history of pulmonary embolism. 7. Chronic kidney disease. 8. Multiple sclerosis. 9. Dyslipidemia. 10. Hypothyroidism. 11. Bipolar disorder with depression, anxiety. 12. Past history of subdural hematoma. 13. Past history of right breast cancer, status post mastectomy. 14. History of seizure disorder. PLAN: The patient was dismissed from the emergency room back to the [facility]. Continue present care and medications. Follow up with personal physician this coming week. Discussion ensued with the patient and her daughter regarding my findings and recommendations, they understand. ALVARO WILKINS MD SDS/modl /[id number] d: 07/07/168 t: 07/07/16 1812, OUTPATIENT REPORT
[2016-07-06 20:43] LABS: BASOPHIL % 0.2 %; EOSINOPHIL # 0.1 K/uL (0.0-0.5); EOSINOPHIL % 0.9 %; HEMATOCRIT 29.1 % (30.0-46.0); HEMOGLOBIN 9.1 g/dL (10.0-15.0); IMMATURE GRANULOCYTE # 0.1 K/uL (0.0-0.3); IMMATURE GRANULOCYTE % 0.5 %; LYMPHOCYTE # 1.5 K/uL (0.8-4.0); MCH 27.1 pg (27.0-34.0); MCHC 31.3 gm/dL (32.0-36.5); MCV 86.6 fl (83.0-98.0); MONOCYTE # 1.2 K/uL (0.0-1.0); MONOCYTE % 11.4 %; MPV 8.1 fl (9.4-12.4); NEUTROPHIL # (ANC) 7.7 K/uL (1.8-7.8); NRBC % 0 /100WBC (0-0.00); PLATELET COUNT 219 K/uL (150-450); RBC 3.36 M/uL (3.00-5.00); RDW-CV 18.9 % (11.9-14.6); WBC 10.5 K/uL (4.0-11.0)
[2016-07-06 20:57] LABS: INR - (THERAPEUTIC) 1.1 (0.9-1.1); PROTIME 11.8 SECONDS (9.6-11.1); PTT 26 SECONDS (25-32)
[2016-07-06 21:01] LABS: ALBUMIN 3.5 gm/dL (3.5-5.0); ALK PHOS 93 IU/L (33-138); ALT 11 IU/L (12-78); ANION GAP 14.1 (10.0-19.0); AST 22 IU/L (10-40); BLOOD UREA NITROGEN 11 mg/dL (6-24); CALCIUM 8.8 mg/dL (8.5-10.5); CHLORIDE 99 mMol/L (96-110); CO2 28 mMol/L (22-32); CPK 48 IU/L (21-215); ESTIMATED GFR (MDRD EQUATION) 53; MAGNESIUM 2.3 mg/dL (1.3-2.6); POTASSIUM 4.1 mMol/L (3.7-5.1); SODIUM 137 mMol/L (135-145); TOTAL PROTEIN 6.8 g/dL (6.0-8.4)
[2016-07-06 21:03] LABS: TOTAL BILIRUBIN 0.5 mg/dL (0.0-1.5)
[2016-07-06 23:12] LABS: CPK 48 IU/L (21-215)
== END 2016-07-06 23:56 | disposition disaster alternative care site (69) ==
LOC: GMED 20:06
PROVIDERS: Emergency Medicine
DX: I50.9 Heart failure, unspecified (principal); I25.10 Atherosclerotic heart disease of native coronary artery without angina pectoris; I48.0 Paroxysmal atrial fibrillation; N18.9 Chronic kidney disease, unspecified; G35 Multiple sclerosis; E78.5 Hyperlipidemia, unspecified; E03.9 Hypothyroidism, unspecified; F31.9 Bipolar disorder, unspecified; G40.909 Epilepsy, unspecified, not intractable, without status epilepticus; K21.9 Gastro-esophageal reflux disease without esophagitis; Z90.11 Acquired absence of right breast and nipple; Z88.0 Allergy status to penicillin; Z88.1 Allergy status to other antibiotic agents; Z88.2 Allergy status to sulfonamides; Z88.8 Allergy status to other drugs, medicaments and biological substances
CPT/HCPCS: J1940

== ENCOUNTER → 2016-07-06 | Outpatient (CLI) | payer MEDICARE, OTHER | END | disposition disaster alternative care site (69) | LOC: GAMB 19:38 | DX: R06.9 Unspecified abnormalities of breathing (principal); R63.5 Abnormal weight gain; R14.0 Abdominal distension (gaseous); R60.0 Localized edema; Z86.79 Personal history of other diseases of the circulatory system; Z79.899 Other long term (current) drug therapy | CPT/HCPCS: A0422; A0425; A0427 ==

== ENCOUNTER → 2016-09-20 | Outpatient (CLI) | payer OTHER, MEDICARE ==
[2016-09-20 15:17] LABS: BILIRUBIN URINE NEGATIVE (NEGATIVE); BLOOD URINE 10 /UL (NEGATIVE); COLOR URINE YELLOW (YELLOW); GLUCOSE URINE NEGATIVE (NEGATIVE); KETONE URINE NEGATIVE (NEGATIVE); LEUKOCYTES URINE 500 /UL (NEGATIVE); NITRITE URINE NEGATIVE (NEGATIVE); PROTEIN URINE 15 mg/dL (NEGATIVE); UROBILINOGEN URINE NORMAL (NORMAL)
[2016-09-20 15:21] LABS: TURBIDITY URINE 2+ (CLEAR)
[2016-09-20 15:42] LABS: EPITHELIAL URINE FULL FIELD #/HPF (NEGATIVE); RBC URINE RARE #/HPF (NEGATIVE)
[2016-09-20 15:43] LABS: BACTERIA URINE MANY (NEGATIVE); MUCUS URINE 1+ (NEGATIVE)
== END | disposition disaster alternative care site (69) ==
PROVIDERS: Family Medicine
DX: N39.0 Urinary tract infection, site not specified (principal)